=== PATIENT | male | born 1980 | race Hispanic/Latino ===

== ENCOUNTER 2019-09-02 11:25 | Inpatient (IN) | payer BC, OTHER, SELFPAY ==
[2019-09-02] MEDS ORDERED: NA CHLORIDE 0.9% 2,000 ML ONE (12:01)
--- NOTE | 2019-09-02 12:12 | EDPHYS ---
Physician Documentation [facility] Name: Gunnar Whitman Age: 38 yrs Sex: Male : 1980 Arrival Date: 09/02/2019 Time: 11:27 Bed 7 Private MD: ED Physician Shaun Pressley HPI: 09/01 12:05 This 38 yrs old Male presents to ER via Ambulatory with complaints of snw Breathing Difficulty, COVID+. 12:05 The patient has shortness of breath at rest. Onset: The symptoms/episode began/occurred snw 4 day(s) ago, and became worse today, and became persistent. Duration: The symptoms are continuous. The patient's shortness of breath is aggravated by exertion, is alleviated by nothing. Severity of symptoms: At their worst the symptoms were incapacitating in the emergency department the symptoms are unchanged. The patient has not experienced similar symptoms in the past. CoVid + one week ago. Historical: - Allergies: 11:41 No Known Allergies; em - PMHx: 11:41 Hypertension; em - PSHx: 11:41 Tonsillectomy; Knee surgery; em - Immunization history:: Adult Immunizations up to date. - Social history:: Smoking status: Patient denies any tobacco usage or history of. ROS: 12:06 Eyes: Negative for injury, pain, redness, and discharge, ENT: Negative for injury, snw pain, and discharge, Neck: Negative for injury, pain, and swelling, Cardiovascular: Negative for chest pain, palpitations, and edema. 12:06 Abdomen/GI: Negative for abdominal pain, nausea, vomiting, diarrhea, and constipation, Back: Negative for injury and pain, : Negative for injury, bleeding, discharge, and swelling, MS/Extremity: Negative for injury and deformity, Skin: Negative for injury, rash, and discoloration, Neuro: Negative for headache, weakness, numbness, tingling, and seizure. 12:06 Constitutional: Positive for body aches, fatigue, malaise. 12:06 Respiratory: Positive for cough, orthopnea, shortness of breath. Exam: 12:02 Head/Face: Normocephalic, atraumatic. Eyes: Pupils equal round and reactive to light, snw extra-ocular motions intact. Lids and lashes normal. Conjunctiva and sclera are non-icteric and not injected. Cornea within normal limits. Periorbital areas with no swelling, redness, or edema. ENT: Nares patent. No nasal discharge, no septal abnormalities noted. Tympanic membranes are normal and external auditory canals are clear. Oropharynx with no redness, swelling, or masses, exudates, or evidence of obstruction, uvula midline. Mucous membranes moist. Neck: Trachea midline, no thyromegaly or masses palpated, and no cervical lymphadenopathy. Supple, full range of motion without nuchal rigidity, or vertebral point tenderness. No Meningismus. Chest/axilla: Normal chest wall appearance and motion. Nontender with no deformity. No lesions are appreciated. 12:02 Abdomen/GI: Soft, non-tender, with normal bowel sounds. No distension or tympany. No guarding or rebound. No evidence of tenderness throughout. Back: No spinal tenderness. No costovertebral tenderness. Full range of motion. 12:02 Constitutional: The patient appears diaphoretic, in obvious distress, obviously ill. 12:02 Cardiovascular: Rate: tachycardic, Pulses: no pulse deficits are appreciated, Edema: is not appreciated. 12:02 Respiratory: severe repiratory distress is noted, Respirations: accessory muscle usage, intercostal retractions, shallow respirations, tachypnea, Breath sounds: wheezing: expiratory that is severe, bases. 12:02 Skin: Appearance: Moisture: diaphoretic. 12:02 Neuro: Exam negative for Vital Signs: 11:38 BP 127 / 84; Pulse 92; Resp 32; Temp 100.1(O); Pulse Ox 72% on R/A; Weight 167.83 kg; em Height 6 ft. 2 in. (187.96 cm); Pain 0/10; 12:00 BP 151 / 81; Pulse 84; Resp 26; Pulse Ox 94% on 60% BiPAP; sv 12:30 BP 151 / 82; Pulse 84; Resp 27; Pulse Ox 95% on 60% BiPAP; sv 12:45 BP 171 / 94; Pulse 91; Resp 27; Pulse Ox 95% on 60% BiPAP; sv 13:15 BP 144 / 64; Pulse 83; Resp 32; Pulse Ox 93% on 60% BiPAP; sv 13:45 BP 142 / 83; Pulse 87; Resp 32; Pulse Ox 93% on 60% BiPAP; sv 14:15 BP 141 / 76; Pulse 87; Resp 30; Pulse Ox 93% on 60% BiPAP; sv 15:00 BP 147 / 89; Pulse 90; Resp 30; Pulse Ox 92% on 60% BiPAP; sv 15:45 BP 122 / 93; Pulse 90; Resp 28; Pulse Ox 95% on 60% BiPAP; sv 16:45 BP 153 / 93; Pulse 84; Resp 26; Temp 99.9; Pulse Ox 96% on BiPAP; Pain 0/10; ls4 17:45 BP 131 / 89; Pulse 85; Resp 27; Pulse Ox 96% on BiPAP; ls4 18:45 BP 142 / 71; Pulse 85; Resp 26; Pulse Ox 96% on BiPAP; Pain 0/10; ls4 19:00 BP 127 / 67; Pulse 84; Resp 26; Pulse Ox 96% on BiPAP; ls4 11:38 Body Mass Index 47.50 (167.83 kg, 187.96 cm) em MDM: 12:07 Data reviewed: vital signs, nurses notes. Data interpreted: Pulse oximetry: on room air snw is 72 %. Interpretation: hypoxia. Plan: O2 by Mask applied. Counseling: I had a detailed discussion with the patient and/or guardian regarding: the historical points, exam findings, and any diagnostic results supporting the discharge/admit diagnosis, lab results, radiology results, the need for further work-up and treatment in the hospital. Physician consultation: Jonnathan Dior MD was called at 12:09, was contacted at 12:09, regarding admission, to the ICU, and will see patient in ED, immediately. 12:10 Patient medically screened. snw 09/01 11:44 Order name: Amylase, Serum 09/01 11:44 Order name: Basic Metabolic Panel 09/01 11:44 Order name: Blood Culture Adult (2) 09/01 11:44 Order name: CBC with Diff 09/01 11:44 Order name: Ckmb; Complete Time: 13:20 09/01 11:44 Order name: CPK; Complete Time: 13:20 09/01 11:44 Order name: Lactate; Complete Time: 12:51 09/01 11:44 Order name: LFT's; Complete Time: 13:20 09/01 11:44 Order name: Lipase; Complete Time: 13:20 09/01 11:44 Order name: Procalcitonin; Complete Time: 13:20 ss 09/01 11:44 Order name: Protime (+inr); Complete Time: 12:51 ss 09/01 11:44 Order name: Ptt, Activated; Complete Time: 12:51 ss 09/01 11:44 Order name: Troponin (emerg Dept Use Only); Complete Time: 13:20 ss 09/01 11:44 Order name: Urine Microscopic Only; Complete Time: 14:58 ss 09/01 11:44 Order name: Amylase; Complete Time: 13:20 EDTN 09/01 11:44 Order name: Basic Metabolic Panel; Complete Time: 13:20 EDMS 09/01 11:44 Order name: Blood Culture EDTN 09/01 11:44 Order name: CBC with Automated Diff; Complete Time: 12:51 EDTN 09/01 12:01 Order name: Ferritin; Complete Time: 13:21 snw 09/01 12:01 Order name: DD; Complete Time: 12:51 sn 09/01 12:01 Order name: BNP; Complete Time: 13:21 snw 09/01 12:01 Order name: ABG; Complete Time: 13:37 snw 09/01 14:49 Order name: Urine Dipstick--Ancillary (enter results); Complete Time: 14:58 09/01 14:55 Order name: CBC with Automated Diff [facility] 09/01 14:55 Order name: CBC with Automated Diff [facility] 09/01 14:55 Order name: CKMB Creatine Kinase MB [facility] 09/01 14:55 Order name: CKMB Creatine Kinase MB [facility] 09/01 14:55 Order name: CKMB Creatine Kinase MB [facility] 09/01 14:55 Order name: CKMB Creatine Kinase MB [facility] 09/01 14:55 Order name: Comprehensive Metabolic Panel [facility] 09/01 11:44 Order name: Chest Single View XRAY; Complete Time: 13:20 ss 09/01 11:44 Order name: Cardiac monitoring; Complete Time: 11:59 09/01 11:44 Order name: EKG - Nurse/Tech; Complete Time: 11:59 ss 09/01 11:44 Order name: IV Saline Lock - Large Bore; Complete Time: 11:58 ss 09/01 11:44 Order name: Labs collected and sent; Complete Time: 11:58 09/01 11:44 Order name: O2 Per Protocol; Complete Time: 11:50 09/01 11:44 Order name: O2 Sat Monitoring; Complete Time: 11:58 09/01 11:44 Order name: Urine Dipstick-Ancillary (obtain specimen); Complete Time: 14:46 09/01 12:01 Order name: BIPAP [facility] 09/01 14:34 Order name: EKG Electrocardiogram [facility] 09/01 14:55 Order name: CONS Physician Consult [facility] 09/01 14:55 Order name: Comprehensive Metabolic Panel [facility] 09/01 14:55 Order name: Troponin I [facility] 09/01 14:55 Order name: Troponin I [facility] 09/01 14:55 Order name: Troponin I [facility] 09/01 14:55 Order name: Troponin I [facility] 09/01 17:45 Order name: TS [facility] 09/01 19:31 Order name: Type and Screen [facility] 09/01 19:32 Order name: ABO/RH no charge EDTN Administered Medications: 12:00 Drug: NS 0.9% (30 ml/kg) 30 ml/kg Route: IV; Rate: bolus; Site: right antecubital; sv 13:30 Follow up: Response: No adverse reaction; IV Status: Completed infusion; IV Intake: sv 2000ml ; Alsysia JEAN said to give 2L out of the sepsis bolus. 13:30 Drug: Decadron - Dexamethasone 10 mg Route: IVP; Site: right antecubital; sv 14:00 Follow up: Response: No adverse reaction sv 13:33 Drug: Lovenox 100 mg Route: Sub-Q; Site: right lower abdomen; sv 14:00 Follow up: Response: No adverse reaction sv 13:33 Drug: Zithromax 500 mg Route: IVPB; Infused Over: 1 hrs; Site: right antecubital; sv 14:47 Follow up: Response: No adverse reaction; IV Status: Completed infusion; IV Intake: sv 250ml Disposition: 09/02 07:08 Co-signature as Attending Physician, Shaun Pressley MD. rn Disposition: 09/02/19 12:10 Hospitalization ordered by Jonnathan Dior for Inpatient Admission. Preliminary diagnosis are SARS-associated coronavirus as the cause of diseases classified elsewhere, Hypoxemia. - Bed requested for Intensive Care Unit. - Status is Inpatient Admission. mg2 - Condition is Serious. - Problem is an acute exacerbation. - Symptoms have worsened. Signatures: Dispatcher [employer] Patria Arboleda, RN HUGH Treasure Bowden RN RN Alyssia Min, STEFAN-C BUILDING PERFORMANCE SPECIALIST-Cs[employer] Benito Bustillos, RN RN em Shaun Pressley MD MD rn Smirch, Shelby, RN RN Todd Alberto RN RN mg2 Corrections: (The following items were deleted from the chart) 09/01 11:58 11:44 Accucheck ordered. ss sv 19:00 12:10 Hospitalization Ordered by Jonnathan Dior MD for Inpatient Admission. Preliminary dw diagnosis is SARS-associated coronavirus as the cause of diseases classified elsewhere; Hypoxemia. Bed requested for Intensive Care Unit. Status is Inpatient Admission. Condition is Serious. Problem is an acute exacerbation. Symptoms have worsened. snw 21:44 19:00 09/02/2019 12:10 Hospitalization Ordered by Jonnathan Dior MD for Inpatient mg2 Admission. Preliminary diagnosis is SARS-associated coronavirus as the cause of diseases classified elsewhere; Hypoxemia. Bed requested for Intensive Care Unit. Status is Inpatient Admission. Condition is Serious. Problem is an acute exacerbation. Symptoms have worsened. dw
--- NOTE | 2019-09-02 12:12 | ER ---
Nurse's Notes [facility] Name: Gunnar Whitman Age: 38 yrs Sex: Male : 1980 Arrival Date: 09/02/2019 Time: 11:27 Bed 7 Private MD: Diagnosis: SARS-associated coronavirus as the cause of diseases classified elsewhere;Hypoxemia Presentation: 09/01 11:38 Chief complaint: Patient states: was tested for covid 1 week ago, shortness of breath em and body aches and weakness for 3. Coronavirus screen: Prior COVID test positive results. Ebola Screen: Patient negative for fever greater than or equal to 101.5 degrees Fahrenheit, and additional compatible Ebola Virus Disease symptoms Patient denies exposure to infectious person. Patient denies travel to an Ebola-affected area in the 21 days before illness onset. No symptoms or risks identified at this time. Initial Sepsis Screen: Does the patient meet any 2 criteria? RR > 20 per min. HR > 90 bpm. Yes Does the patient have a suspected source of infection? Yes: Productive cough/pneumonia. Risk Assessment: Do you want to hurt yourself or someone else? Patient reports no desire to harm self or others. Onset of symptoms was August 30, 2019. 11:38 Method Of Arrival: Ambulatory em 11:38 Acuity: DALE 2 em Triage Assessment: 11:45 Respiratory: the patient has severe shortness of breath. sv Historical: - Allergies: 11:41 No Known Allergies; em - PMHx: 11:41 Hypertension; em - PSHx: 11:41 Tonsillectomy; Knee surgery; em - Immunization history:: Adult Immunizations up to date. - Social history:: Smoking status: Patient denies any tobacco usage or history of. Screenin:00 Abuse screen: Denies threats or abuse. Denies injuries from another. Nutritional sv screening: No deficits noted. Tuberculosis screening: No symptoms or risk factors identified. Fall Risk None identified. Assessment: 12:00 General: Appears in no apparent distress. uncomfortable, obese, well developed, sv Behavior is calm, cooperative, appropriate for age. Pain: Denies pain. Neuro: Level of Consciousness is awake, alert, obeys commands, Oriented to person, place, time, situation, Moves all extremities. Full function. Cardiovascular: Rhythm is sinus rhythm. Respiratory: Reports shortness of breath at rest on exertion labored breathing Airway is patent Respiratory effort is even, labored, shallow, Respiratory pattern is symmetrical, tachypnea. Derm: Skin is diaphoretic, Skin is normal. Musculoskeletal: Range of motion: intact in all extremities. 12:34 Reassessment: Alyssia Garcia RETURNED GOODS REPAIRER notified of elevated DDIMER [id number]. ss 12:40 Respiratory: Patient placed on BiPAP: Inspiratory Pressure: 12 Expiratory (EPAP) sv Pressure: 10 FiO2%: 60 Respiratory Rate: 12. 13:30 Reassessment: Patient appears in no apparent distress at this time. Patient and/or sv family updated on plan of care and expected duration. Pain level reassessed. Patient is alert, oriented x 3, equal unlabored respirations, skin warm/dry/pink. 13:30 Respiratory: Patient placed on BiPAP: Inspiratory Pressure: 12 Expiratory (EPAP) sv Pressure: 10 FiO2%: 60 Respiratory Rate: 12. 14:30 Reassessment: Patient appears in no apparent distress at this time. Patient and/or ls4 family updated on plan of care and expected duration. Pain level reassessed. Patient is alert, oriented x 3, equal unlabored respirations, skin warm/dry/pink. Patient states symptoms have improved. 14:30 Respiratory: Breath sounds are diminished. ls4 15:30 Reassessment: Patient appears in no apparent distress at this time. Patient and/or ls4 family updated on plan of care and expected duration. Pain level reassessed. Patient is alert, oriented x 3, equal unlabored respirations, skin warm/dry/pink. 16:30 Reassessment: Patient appears in no apparent distress at this time. Patient and/or ls4 family updated on plan of care and expected duration. Pain level reassessed. Patient is alert, oriented x 3, equal unlabored respirations, skin warm/dry/pink. 17:30 Reassessment: Patient appears in no apparent distress at this time. Patient and/or ls4 family updated on plan of care and expected duration. Pain level reassessed. Patient is alert, oriented x 3, equal unlabored respirations, skin warm/dry/pink. 18:31 Reassessment: Patient appears in no apparent distress at this time. Patient and/or ls4 family updated on plan of care and expected duration. Pain level reassessed. Patient is alert, oriented x 3, equal unlabored respirations, skin warm/dry/pink. 19:20 Reassessment: Pt refused Convalescent Plasma, CN notified. ls4 19:30 Reassessment: Patient appears in no apparent distress at this time. Patient and/or ls4 family updated on plan of care and expected duration. Pain level reassessed. Patient is alert, oriented x 3, equal unlabored respirations, skin warm/dry/pink. 20:30 Reassessment: Patient appears in no apparent distress at this time. Patient and/or ls4 family updated on plan of care and expected duration. Pain level reassessed. Patient is alert, oriented x 3, equal unlabored respirations, skin warm/dry/pink. 21:07 Reassessment: Patient appears in no apparent distress at this time. Patient and/or ls4 family updated on plan of care and expected duration. Pain level reassessed. Patient is alert, oriented x 3, equal unlabored respirations, skin warm/dry/pink. 22:07 Reassessment: Pt further educated on Convalescent Plasma. Pt agrees to received Plasma. ls4 Consent signed for [facility] convalescent Plasma and Procedure consent to receive Convalescent Plasma. Vital Signs: 11:38 BP 127 / 84; Pulse 92; Resp 32; Temp 100.1(O); Pulse Ox 72% on R/A; Weight 167.83 kg; em Height 6 ft. 2 in. (187.96 cm); Pain 0/10; 12:00 BP 151 / 81; Pulse 84; Resp 26; Pulse Ox 94% on 60% BiPAP; sv 12:30 BP 151 / 82; Pulse 84; Resp 27; Pulse Ox 95% on 60% BiPAP; sv 12:45 BP 171 / 94; Pulse 91; Resp 27; Pulse Ox 95% on 60% BiPAP; sv 13:15 BP 144 / 64; Pulse 83; Resp 32; Pulse Ox 93% on 60% BiPAP; sv 13:45 BP 142 / 83; Pulse 87; Resp 32; Pulse Ox 93% on 60% BiPAP; sv 14:15 BP 141 / 76; Pulse 87; Resp 30; Pulse Ox 93% on 60% BiPAP; sv 15:00 BP 147 / 89; Pulse 90; Resp 30; Pulse Ox 92% on 60% BiPAP; sv 15:45 BP 122 / 93; Pulse 90; Resp 28; Pulse Ox 95% on 60% BiPAP; sv 16:45 BP 153 / 93; Pulse 84; Resp 26; Temp 99.9; Pulse Ox 96% on BiPAP; Pain 0/10; ls4 17:45 BP 131 / 89; Pulse 85; Resp 27; Pulse Ox 96% on BiPAP; ls4 18:45 BP 142 / 71; Pulse 85; Resp 26; Pulse Ox 96% on BiPAP; Pain 0/10; ls4 19:00 BP 127 / 67; Pulse 84; Resp 26; Pulse Ox 96% on BiPAP; ls4 11:38 Body Mass Index 47.50 (167.83 kg, 187.96 cm) em ED Course: 11:27 Patient arrived in ED. ag5 11:41 Triage completed. em 11:41 Arm band placed on. em 11:49 Patria Phillips, RN is Primary Nurse. sv 11:49 Patient has correct armband on for positive identification. Placed in gown. Bed in low mh5 position. Call light in reach. Side rails up X 1. Pillow given. court recording monitor on. Pulse ox on. NIBP on. 11:49 Oxygen administration via nasal cannula \T\ 2L/min. mh5 11:50 Inserted saline lock: 20 gauge in right antecubital area, using aseptic technique. ss Blood collected. 11:55 Inserted saline lock: 20 gauge in left antecubital area, using aseptic technique. Blood ss collected. 11:58 [facility] snw 11:58 Shaun Pressley MD is Attending Physician. snw 11:58 Oxygen administration via non-rebreather mask \T\ 15 L per min. 95%. em 11:59 Amylase, Serum Sent. sv 11:59 Basic Metabolic Panel Sent. sv 11:59 Blood Culture Adult (2) Sent. sv 11:59 CBC with Diff Sent. sv 12:09 Jonnathan Dior MD is Hospitalizing Provider. snw 12:55 Chest Single View XRAY Sent. sv 12:56 BIPAP Sent. sv 12:58 Chest Single View XRAY In Process Unspecified. EDMS 14:30 Awaiting bed assignment. sv 15:23 Awaiting bed assignment. sv 16:13 Primary Nurse role handed off by Patria Phillips, HUGH sv 21:04 No provider procedures requiring assistance completed. ls4 21:44 Patient admitted, IV remains in place. intact. ls4 Administered Medications: 12:00 Drug: NS 0.9% (30 ml/kg) 30 ml/kg Route: IV; Rate: bolus; Site: right antecubital; sv 13:30 Follow up: Response: No adverse reaction; IV Status: Completed infusion; IV Intake: sv 2000ml ; Alyssia RETURNED GOODS REPAIRER said to give 2L out of the sepsis bolus. 13:30 Drug: Decadron - Dexamethasone 10 mg Route: IVP; Site: right antecubital; sv 14:00 Follow up: Response: No adverse reaction sv 13:33 Drug: Lovenox 100 mg Route: Sub-Q; Site: right lower abdomen; sv 14:00 Follow up: Response: No adverse reaction sv 13:33 Drug: Zithromax 500 mg Route: IVPB; Infused Over: 1 hrs; Site: right antecubital; sv 14:47 Follow up: Response: No adverse reaction; IV Status: Completed infusion; IV Intake: sv 250ml Intake: 13:30 IV: 2000ml; Total: 2000ml. sv 14:47 IV: 250ml; Total: 2250ml. sv Outcome: 12:10 Decision to Hospitalize by Provider. snw 21:44 Patient left the ED. mg2 21:44 Admitted to ICU accompanied by nurse, accompanied by tech, via stretcher, room 7, with ls4 oxygen, on monitor, with chart, Other with RT. Pt placed on NRB 15 liters O2. tolerated well 21:44 Admitted to 21:44 Admitted to Report called to Gema Vinson RN 21:44 critical 21:44 Instructed on the need for admit. Signatures: Dispatcher [employer] Patria Arboleda, RN RN sv Alyssia Min, MANAGER CUSTOMS-C MANAGER CUSTOMS-Csnw Benito Bustillos, RN Monique Chase RN RN Deena Mayberry [facility] Todd Alberto RN RN mg2 Taya Bautista RN RN ls4 Cabrera Parikh 5 Corrections: (The following items were deleted from the chart) 12:12 11:58 NS 0.9% (30 ml/kg) 30 ml/kg IV at bolus in right antecubital sv snw 12:38 11:38 BP 127 / 84; Pulse 92bpm; Resp 32bpm; Pulse Ox 82% RA; Temp 100.1F Oral; 167.83 em kg; Height 6 ft. 2 in.; BMI: 47.5; Pain 0/10; em 14:10 12:40 Respiratory: Patient placed on BiPAP: sv sv 19:16 16:45 BP 153 / 93; Pulse 84bpm; Resp 16bpm; Pulse Ox 96% RA; Temp 99.9F; Pain 0/10; ls4 ls4 19:28 16:45 BP 153 / 93; Pulse 84bpm; Resp 16bpm; Pulse Ox 96% BiPAP; Temp 99.9F; Pain 0/10; ls4 ls4 19:28 18:45 BP 142 / 71; Pulse 85bpm; Resp 16bpm; Pulse Ox 96% BiPAP; Pain 0/10; ls4 ls4 19:28 17:45 BP 131 / 89; Pulse 85bpm; Resp 16bpm; Pulse Ox 96% BiPAP; ls4 ls4 19:28 19:00 BP 127 / 67; Pulse 84bpm; Pulse Ox 96% BiPAP; ls4 ls4
[2019-09-02 12:14] LABS: Absolute Lymphocytes (CBC) 0.8 K/uL (0.7-4.9); Basophils % 0.3 % (0-1.3); Hematocrit 43.5 % (39.6-49.0); Lymphocytes % 12.5 % (15.3-44.8); RBC Red Blood Cell Count 5.29 M/uL (4.33-5.43)
[2019-09-02 12:19] LABS: Protime INR 1.22
[2019-09-02] MEDS ORDERED: dexAMETHasone 10 MG/ML VIAL ONE (12:23)
[2019-09-02] MEDS ORDERED: ENOXAPARIN 100 MG/ML SYR SQ ONE (12:23)
[2019-09-02 12:49] LABS: ALT/SGPT 78 U/L (12-78); AST/SGOT 97 U/L (15-37); Albumin 2.8 g/dL (3.4-5.0); Alkaline Phosphatase 48 U/L (45-117); Amylase 51 U/L (25-115); BUN Blood Urea Nitrogen 9 mg/dL (7-18); Bicarbonate 27 mmol/L (21-32); Bilirubin Direct 0.3 mg/dL (0-0.2); Bilirubin Total 0.6 mg/dL (0.2-1.0); CKMB Creatine Kinase MB 2.9 ng/mL (0.3-3.6); Glucose Level 113 mg/dL (74-106); Lipase 184 U/L (73-393); Potassium 3.1 mmol/L (3.5-5.1); Sodium Level 139 mmol/L (136-145); Troponin (Emerg Dept Use Only) 0.04 ng/mL (0.0-0.045)
[2019-09-02] MEDS ORDERED: AZITHROMYCIN IV 500 MG in NA CHLORIDE 0.9% 250 ML IVPB ONE (13:00)
--- NOTE | 2019-09-02 13:01 | P.HP ---
Certification for Inpatient Patient admitted to: Inpatient With expected LOS: >2 Midnights Practitioner: I am a practitioner with admitting privileges, knowledge of patient current condition, hospital course, and medical plan of care. Services: Services provided to patient in accordance with Admission requirements found in Title 42 Section 412.3 of the Code of Federal Regulations Patient History Date of Service: 09/02/19 Reason for admission: SOB History of Present Illness: 38 yrs old Male with past medical history of hypertension presents with complaints of shortness of breath which has been going on for the last 4 days and has been progressively worsening hence was brought to ER. He was tested positive 1 week ago. but did not had any symptoms and started having shortness of breath 4 days ago and became worse today, and became persistent. The symptoms are continuous. The patient's shortness of breath is aggravated by exertion, is alleviated by nothing. At the time of interview the patient is on BiPAP hence most of the history is obtained from the chart review and talking to the ER physician Allergies No Known Allergies Allergy (Unverified 02/01/17 13:22) Home medications list reviewed: Yes - Past Medical/Surgical History Past Medical History: Reviewed- Non-Contributory -: HTN -: Obesity Past Surgical History: Reviewed- Non-Contributory -: Knee - Family History Family History: Reviewed- Non-Contributory - Social History Smoking Status: Never smoker Review of Systems 10-point ROS is otherwise unremarkable Physical Examination - Vital Signs Temperature: 100.1 F Blood Pressure: 124/66 Pulse: 88 Respirations: 18 - Physical Exam General: Alert, Moderate distress, Obese HEENT: Atraumatic, Normocephalic Neck: Supple Respiratory: Diminished, Crackles/rales Cardiovascular: Normal pulses, Regular rate/rhythm Capillary refill: <2 Seconds Gastrointestinal: Soft and benign, W/out hepatosplenomegaly Musculoskeletal: No clubbing, No swelling Integumentary: No rashes, No breakdown Neurological: Normal strength at 5/5 x4 extr, Other (Alert , Awake ) Lymphatics: No axilla or inguinal lymphadenopathy - Studies Laboratory Data (last 24 hrs) 09/02/19 11:57: PT 14.3 H, INR 1.22, APTT 32.9 09/02/19 11:57: WBC 6.7, Hgb 14.5, Hct 43.5, Plt Count 197 Assessment and Plan - Problems (Diagnosis) (1) Sepsis with acute hypoxic respiratory failure Current Visit: Yes Status: Acute (2) Pneumonia due to COVID-19 virus Current Visit: Yes Status: Acute - Plan Acute hypoxic respiratory failure Pneumonia due to COVID 19 Hypertension Obesity Plan Monitor closely under telemetry Will get an ABG Pulmonology consult Will start on BiPAP Start on steroids and empiric antibiotics Lovenox full dose Start on Decadron Will also get a convalescent plasma for him Pulmonology recommending Remdesivir GI/DVT prophylaxis Prognosis guarded - Advance Directives Does patient have a Living Will: No Does patient have a Durable POA for Healthcare: No Time Spent Managing Pts Care (In Minutes): 48
[2019-09-02 13:03] LABS: Creatine Phosphokinase 2612 U/L (39-308)
--- NOTE | 2019-09-02 13:12 | RAD REPORT ---
EXAM DESCRIPTION: RAD - Chest Single View - 09/02/2019 12:57 pm CLINICAL HISTORY: covid +, shortness of breath, body aches COMPARISON: Portable February 2016 TECHNIQUE: AP portable chest image was obtained 09/02/2019 12:57 pm . FINDINGS: Lung volumes are low. Large body habitus further accentuates the chest findings. The patie nt has extensive airspace opacification throughout the right lung field and much of the left lung fie ld. Left lung field is a peripheral distribution. Trachea is midline. Heart and vasculature are dolly l. No measurable pleural effusion and no pneumothorax. No acute bony abnormality seen. No acute aorti c findings suspected. IMPRESSION: Extensive bilateral airspace opacification throughout the lung woods. Given the positive coronal virus test, chest findings are most likely an advanced COVID-19 pneumonia.
[2019-09-02 13:20] LABS: Ferritin 572.8 ng/mL (26-388)
[2019-09-02 13:35] LABS: Arterial Blood Carboxyhemoglob 1.1 % (0-1.5); Blood Gas Oxyhemoglobin 91.4 % (94-97)
[2019-09-02] MEDS ORDERED: ACETAMINOPHEN 500 MG TAB PO PRN (14:48)
[2019-09-02 14:55] LABS: Urine Bacteria NONE SEEN /HPF (NONE SEEN); Urine Culture Reflex Order NOT NEEDED; Urine RBC <5 /HPF (NONE SEEN)
[2019-09-02 14:56] LABS: Urine Blood NEGATIVE (NEG); Urine Glucose NEGATIVE (NEG); Urine Protein NEGATIVE (NEG); Urine pH 6.5 (5.0-7.0)
[2019-09-02] MEDS: CEFTRIAXONE/SWI 1gm 1 GM/10 ML SYR IVP SCH (15:00)
[2019-09-02] MEDS: SPIRONOLACTONE 25 MG TABLET PO SCH (16:00)
[2019-09-02] MEDS ORDERED: FUROSEMIDE 20 MG/ 2ML VIAL IV ONE (16:00)
[2019-09-02] MEDS ORDERED: Remdesivir 200 MG in NA CHLORIDE 0.9% 250 ML IV ONE (17:00)
[2019-09-02] MEDS ORDERED: FUROSEMIDE 20 MG TABLET ONE (17:44)
[2019-09-02] MEDS ORDERED: SPIRONOLACTONE 25 MG TABLET ONE (18:37)
[2019-09-02] MEDS ORDERED: CEFTRIAXONE/SWI 1gm 1 GM/10 ML SYR ONE (20:09)
[2019-09-02 20:54] LABS: CKMB Creatine Kinase MB 4.1 ng/mL (0.3-3.6); Troponin I 0.02 ng/mL (0.0-0.045)
[2019-09-02 22:29] VITALS: BMI 47.5
[2019-09-02] MEDS: FAMOTIDINE 20 MG/2 ML VIAL IV SCH (22:55)
[2019-09-02] MEDS: ENOXAPARIN 30 MG/0.3 ML SQ SCH (22:55)
[2019-09-03 05:52] LABS: Absolute Lymphocytes (CBC) 0.8 K/uL (0.7-4.9); Basophils % 0.1 % (0-1.3); Hematocrit 41.8 % (39.6-49.0); MPV 10.2 fL (7.6-11.3)
[2019-09-03 05:55] LABS: ALT/SGPT 70 U/L (12-78); AST/SGOT 82 U/L (15-37); Albumin 2.5 g/dL (3.4-5.0); Alkaline Phosphatase 45 U/L (45-117); BUN Blood Urea Nitrogen 12 mg/dL (7-18); Bicarbonate 28 mmol/L (21-32); Bilirubin Total 0.5 mg/dL (0.2-1.0); Glucose Level 147 mg/dL (74-106); Potassium 3.5 mmol/L (3.5-5.1); Protein, Total 6.8 g/dL (6.4-8.2); Sodium Level 146 mmol/L (136-145)
[2019-09-03 05:57] LABS: CKMB Creatine Kinase MB 4.9 ng/mL (0.3-3.6); Troponin I 0.02 ng/mL (0.0-0.045)
[2019-09-03 06:28] LABS: Magnesium 2.3 mg/dL (1.8-2.4); Phosphorus 2.6 mg/dL (2.5-4.9)
[2019-09-03] MEDS: CEFTRIAXONE/SWI 1gm 1 GM/10 ML SYR IVP SCH (08:58)
[2019-09-03] MEDS: METOPROLOL TAR 50 MG TAB PO SCH (08:58)
[2019-09-03] MEDS: ENOXAPARIN 30 MG/0.3 ML SQ SCH (08:58)
[2019-09-03] MEDS: ZINC SULFATE 220 MG CAP PO SCH (08:59)
[2019-09-03] MEDS: dexAMETHasone 4 MG/ML VIAL IV SCH (08:59)
[2019-09-03] MEDS: FAMOTIDINE 20 MG/2 ML VIAL IV SCH ×2 (08:59→20:21)
[2019-09-03] MEDS: THIAMINE HCL 100 MG TABLET PO SCH (08:59)
[2019-09-03] MEDS: SPIRONOLACTONE 25 MG TABLET PO SCH (08:59)
[2019-09-03] MEDS ORDERED: AZITHROMYCIN IV 500 MG in NA CHLORIDE 0.9% 250 ML IVPB SCH (09:00)
[2019-09-03] MEDS ORDERED: POTASSIUM CL SA 10 MEQ TAB PO ONE (09:00)
[2019-09-03] MEDS ORDERED: ENOXAPARIN 40 MG/0.4 ML SQ SCH (09:00)
--- NOTE | 2019-09-03 10:17 | EKG ---
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
[2019-09-03] MEDS: Remdesivir 100 MG in NA CHLORIDE 0.9% 250 ML IV SCH (10:21)
--- NOTE | 2019-09-03 10:49 | P.PN ---
Subjective Date of Service: 09/03/19 Chief Complaint: SOB Subjective: No new changes Review of Systems 10-point ROS is otherwise unremarkable Physical Examination - Vital Signs Temperature: 97.2 F Blood Pressure: 166/97 Pulse: 98 Respirations: 38 Pulse Ox (%): 90 - Physical Exam General: Alert, Mild distress, Obese HEENT: Atraumatic, Normocephalic Neck: Supple, 2+ carotid pulse no bruit Respiratory: Diminished, Crackles/rales Cardiovascular: Regular rate/rhythm, Normal S1 S2 Capillary refill: <2 Seconds Gastrointestinal: Soft and benign, W/out hepatosplenomegaly Musculoskeletal: No clubbing, No swelling Integumentary: No rashes Neurological: Normal speech, Normal strength at 5/5 x4 extr Lymphatics: No axilla or inguinal lymphadenopathy Urinary: Other (No bladder distention) - Studies Laboratory Data (last 24 hrs) 09/02/19 11:57: PT 14.3 H, INR 1.22, APTT 32.9 09/02/19 11:57: WBC 6.7, Hgb 14.5, Hct 43.5, Plt Count 197 09/02/19 11:57: Sodium 139, Potassium 3.1 L, BUN 9, Creatinine 0.91, Glucose 113 H, Total Bilirubin 0.6, AST 97 H, ALT 78, Alkaline Phosphatase 48, Amylase 51, Lipase 184 Assessment & Plan - Problems (Diagnosis) (1) Sepsis with acute hypoxic respiratory failure Current Visit: Yes Status: Acute (2) Pneumonia due to COVID-19 virus Current Visit: Yes Status: Acute Physician Review Additional Text: Acute hypoxic respiratory failure Pneumonia due to COVID 19 Hypertension Obesity Hypernatremia Plan Admitted to ICU Patient is on BiPAP Chance of decompensation is very high Monitor closely under telemetry Appreciate Pulmonology consult on steroids and empiric antibiotics Anticoagulation convalescent plasma Pulmonology recommended Remdesivir Monitor renal parameters GI/DVT prophylaxis Prognosis guarded Time Spent Managing Pts Care (In Minutes): 45
[2019-09-03] MEDS: BUDESONIDE 0.5 MG/2 ML NEB NEB SCH ×2 (11:58→20:15)
--- NOTE | 2019-09-03 12:08 | P.CNS ---
Date of Consult: 09/03/19 Reason for Consult: respiratory failure due to garcia virus Chief Complaint: respiratory failure History of Present Illness: patient is 38 years of age with a history of hypertension admitted with progressive dyspnea for the past 4 weeks as tested positive about a week ago presented with diff diffuse bilateral pulmonary infiltrates significanthypoxemia and was started on BiPAP Allergies No Known Allergies Allergy (Verified 09/02/19 22:08) Home Medications: Hydralazine HCl [Apresoline] 100 mg PO BID 09/02/19 Losartan Potassium [Cozaar] 100 mg PO DAILY 09/02/19 Metoprolol Tartrate [Lopressor*] 100 mg PO DAILY 09/02/19 - Past Medical/Surgical History Diabetic: No -: HTN -: Obesity -: Knee -: tonsillectomy - Family History Father Medical History: Hypertension - Social History Alcohol use: No CD- Drugs: No Caffeine use: Yes Place of Residence: Home Review of Systems Respiratory: Cough, Shortness of Breath Physical Examination Temp Pulse Resp BP Pulse Ox 97.2 F 81 38 H 151/91 H 90 L 09/03/19 10:49 09/03/19 11:00 09/03/19 11:00 09/03/19 11:00 09/03/19 11:00 General: Other Laboratory Data (last 24 hrs) 09/02/19 11:57: PT 14.3 H, INR 1.22, APTT 32.9 09/02/19 11:57: WBC 6.7, Hgb 14.5, Hct 43.5, Plt Count 197 09/02/19 11:57: Sodium 139, Potassium 3.1 L, BUN 9, Creatinine 0.91, Glucose 113 H, Total Bilirubin 0.6, AST 97 H, ALT 78, Alkaline Phosphatase 48, Amylase 51, Lipase 184 - Problems (1) Respiratory failure Current Visit: Yes Status: Acute Plan: patient is 38 years of age admitted with respiratory failure worse impressive bilateral infiltrates due to garcia virus continue with present treatment change to p.o. Zithromax he said rest as me and an convalescent plasma continue with steroids currently requiring 80% oxygen labs reviewed change anticoagulation to Eliquis continue with negative fluid balance Qualifiers: Chronicity: acute
[2019-09-03 13:31] LABS: CKMB Creatine Kinase MB 4.3 ng/mL (0.3-3.6); Troponin I 0.02 ng/mL (0.0-0.045)
[2019-09-03] MEDS: HYDRALAZINE HCL 20 MG/ML VIAL IV PRN ×2 (14:01→20:21)
[2019-09-03] MEDS: GUAIFENESIN/CODEINE 5ML UCUP PO PRN (14:25)
[2019-09-03] MEDS: BENZONATATE 100 MG CAP PO PRN (17:58)
[2019-09-03] MEDS: APIXABAN 5 MG TABLET PO SCH (20:20)
[2019-09-03] MEDS ORDERED: APIXABAN 2.5 MG TABLET PO SCH (21:00)
[2019-09-03] MEDS ORDERED: NA CHLORIDE 0.9% 250 ML ONE (22:41)
[2019-09-04 04:25] LABS: Protime INR 1.45
[2019-09-04 04:35] LABS: BUN Blood Urea Nitrogen 19 mg/dL (7-18); Bicarbonate 29 mmol/L (21-32); Glucose Level 137 mg/dL (74-106); Magnesium 2.5 mg/dL (1.8-2.4); Phosphorus 2.2 mg/dL (2.5-4.9); Potassium 3.5 mmol/L (3.5-5.1); Sodium Level 149 mmol/L (136-145)
[2019-09-04] MEDS ORDERED: POTASSIUM PHOS IN 0.9 % NACL 15 MMOL/250 ML BAG IV ONE (05:00)
[2019-09-04] MEDS: HYDRALAZINE HCL 20 MG/ML VIAL IV PRN ×2 (05:23→16:37)
[2019-09-04 08:17] LABS: Albumin 2.5 g/dL (3.4-5.0); Bilirubin Direct 0.2 mg/dL (0-0.2); Bilirubin Total 0.5 mg/dL (0.2-1.0); Protein, Total 6.7 g/dL (6.4-8.2)
--- NOTE | 2019-09-04 08:27 | RAD REPORT ---
EXAM DESCRIPTION: RAD - Chest Single View - 09/04/2019 5:46 am CLINICAL HISTORY: pneumonia Chest pain. COMPARISON: Chest Single View dated 09/02/2019; Abdomen 1 View ([facility]) dated 03/10/2017; Chest Single Vi ew dated 02/15/2016 FINDINGS: Portable technique limits examination quality. Extensive bilateral pulmonary opacities are again noted, compatible with pneumonia. Little overall ch gurdeep is seen in the degree of pulmonary opacities since 09/02/2019. The heart is mildly prominent in size. No displaced fractures.
[2019-09-04] MEDS: METOPROLOL TAR 50 MG TAB PO SCH (08:29)
[2019-09-04] MEDS: CEFTRIAXONE/SWI 1gm 1 GM/10 ML SYR IVP SCH (08:29)
[2019-09-04] MEDS: FAMOTIDINE 20 MG/2 ML VIAL IV SCH ×2 (08:30→21:08)
[2019-09-04] MEDS: ZINC SULFATE 220 MG CAP PO SCH (08:30)
[2019-09-04] MEDS: APIXABAN 5 MG TABLET PO SCH ×2 (08:30→21:08)
[2019-09-04] MEDS: dexAMETHasone 4 MG/ML VIAL IV SCH (08:30)
[2019-09-04] MEDS: THIAMINE HCL 100 MG TABLET PO SCH (08:30)
[2019-09-04] MEDS: GUAIFENESIN/CODEINE 5ML UCUP PO PRN (08:31)
[2019-09-04] MEDS: Remdesivir 100 MG in NA CHLORIDE 0.9% 250 ML IV SCH (09:55)
[2019-09-04] MEDS: BUDESONIDE 0.5 MG/2 ML NEB NEB SCH ×2 (10:50→20:30)
--- NOTE | 2019-09-04 11:00 | P.PN ---
Subjective Date of Service: 09/04/19 Chief Complaint: SOB Subjective: No new changes, Other (Slightly Worsened from yesterday) Review of Systems 10-point ROS is otherwise unremarkable Physical Examination - Vital Signs Temperature: 99.4 F Blood Pressure: 164/93 Pulse: 83 Respirations: 31 Pulse Ox (%): 90 - Physical Exam General: Alert, Moderate distress, Obese HEENT: Atraumatic, Normocephalic Neck: Supple, 2+ carotid pulse no bruit Respiratory: Diminished, Crackles/rales Cardiovascular: Regular rate/rhythm, Normal S1 S2 Capillary refill: <2 Seconds Gastrointestinal: Soft and benign, W/out hepatosplenomegaly Musculoskeletal: No clubbing, No swelling Integumentary: No rashes Neurological: Normal speech, Normal strength at 5/5 x4 extr Lymphatics: No axilla or inguinal lymphadenopathy Assessment & Plan - Problems (Diagnosis) (1) Sepsis with acute hypoxic respiratory failure Current Visit: Yes Status: Acute (2) Pneumonia due to COVID-19 virus Current Visit: Yes Status: Acute Physician Review Additional Text: Acute hypoxic respiratory failure Pneumonia due to COVID 19 Hypertension Obesity Hypernatremia Plan Admitted to ICU Patient is still on BiPAP, increase in respiratory rate noted Chance of decompensation is very high Monitor closely under telemetry Appreciate Pulmonology consult on steroids and empiric antibiotics ,Remdesivir Anticoagulation convalescent plasma Monitor renal parameters GI/DVT prophylaxis Prognosis guarded Time Spent Managing Pts Care (In Minutes): 45
[2019-09-04] MEDS: LOSARTAN POTASSIUM 50 MG TABLET PO SCH (11:36)
--- NOTE | 2019-09-04 11:49 | P.PN ---
Subjective Date of Service: 09/26/19 Chief Complaint: Respiratory failure due to garcia virus Patient's condition is stable his oxygen requirements have decreased a little bit to 70% still very short of breath Review of Systems General: Weakness Respiratory: Shortness of Breath Physical Examination - Vital Signs Temperature: 99.4 F Blood Pressure: 164/93 Pulse: 83 Respirations: 31 Pulse Ox (%): 90 - Physical Exam General: Alert, Moderate distress Respiratory: Crackles/rales (Crackles bilaterally) Cardiovascular: No edema, Regular rate/rhythm Assessment & Plan - Problems (Diagnosis) (1) Respiratory failure Status: Acute Plan: Patient admitted with respiratory failure due to garcia virus he has bilateral airspace disease continue with present treatment as still alert oxygen requirements have declined a little bit today EPAP was increase in so was is respiratory rate today encourage fluid intake Qualifiers: Chronicity: acute
[2019-09-04] MEDS: ACETYLCYST 20% 800 MG/4 ML VIAL PO SCH ×2 (13:01→21:09)
[2019-09-04] MEDS: ONDANSETRON 4 MG/2 ML VIAL IV PRN (17:49)
--- NOTE | 2019-09-04 20:54 | RAD REPORT ---
EXAM DESCRIPTION: US - Abdomen Exam Complete - 09/04/2019 8:08 pm CLINICAL HISTORY: Abdominal pain COMPARISON: none FINDINGS: The liver has a normal echotexture. The gallbladder is contracted and poorly visualized. No gross gallstones seen. Gallbladder wall dolly l thickness. Biliary tree normal caliber. Nonvisualization of pancreas secondary to overlying bowel gas. Poor evaluation of IVC and aorta secon cindy to overlying bowel gas The right kidney measures 12 centimeters with a normal echotexture. The left kidney measures 11 centimeters with a normal echotexture. The evaluation is suboptimal but t here appears to be mild hydronephrosis. Small calculi The spleen measures 10 centimeters. IMPRESSION: Probable mild left hydronephrosis Limited evaluation of the abdomen secondary to body habitus. If clinically indicated further evaluation with CT scan may be helpful
[2019-09-04] MEDS: BENZONATATE 100 MG CAP PO PRN (21:08)
[2019-09-05 05:24] LABS: ALT/SGPT 52 U/L (12-78); AST/SGOT 37 U/L (15-37); Albumin 2.3 g/dL (3.4-5.0); Alkaline Phosphatase 43 U/L (45-117); BUN Blood Urea Nitrogen 25 mg/dL (7-18); Bicarbonate 30 mmol/L (21-32); Bilirubin Direct 0.2 mg/dL (0-0.2); Bilirubin Total 0.4 mg/dL (0.2-1.0); Glucose Level 124 mg/dL (74-106); Magnesium 2.7 mg/dL (1.8-2.4); Phosphorus 3.7 mg/dL (2.5-4.9); Potassium 3.7 mmol/L (3.5-5.1); Protein, Total 6.5 g/dL (6.4-8.2); Sodium Level 150 mmol/L (136-145)
[2019-09-05] MEDS ORDERED: KCL 20 MEQ/100 mL IVPB 20 MEQ/100 ML BAG IV SCH (07:00)
[2019-09-05] MEDS: Remdesivir 100 MG in NA CHLORIDE 0.9% 250 ML IV SCH (08:43)
[2019-09-05] MEDS: APIXABAN 5 MG TABLET PO SCH ×2 (08:43→20:04)
[2019-09-05] MEDS: LOSARTAN POTASSIUM 50 MG TABLET PO SCH (08:43)
[2019-09-05] MEDS: ZINC SULFATE 220 MG CAP PO SCH (08:43)
[2019-09-05] MEDS: THIAMINE HCL 100 MG TABLET PO SCH (08:43)
[2019-09-05] MEDS: METOPROLOL TAR 50 MG TAB PO SCH (08:43)
[2019-09-05] MEDS: CEFTRIAXONE/SWI 1gm 1 GM/10 ML SYR IVP SCH (08:43)
[2019-09-05] MEDS: ACETYLCYST 20% 800 MG/4 ML VIAL PO SCH ×2 (08:44→20:04)
[2019-09-05] MEDS: dexAMETHasone 4 MG/ML VIAL IV SCH (08:44)
[2019-09-05] MEDS: FAMOTIDINE 20 MG/2 ML VIAL IV SCH ×2 (08:44→20:04)
--- NOTE | 2019-09-05 08:48 | P.PN ---
Subjective Date of Service: 09/26/19 Chief Complaint: Respiratory failure due to garcia virus Patient's condition has been stable he is requiring less oxygen still tachypneic hypernatremic Review of Systems Respiratory: Shortness of Breath Physical Examination - Vital Signs Temperature: 98.9 F Blood Pressure: 134/69 Pulse: 64 Respirations: 28 Pulse Ox (%): 94 - Physical Exam General: Other (Deferred patient is in isolation) Assessment & Plan - Problems (Diagnosis) (1) Respiratory failure Status: Acute Plan: Patient admitted with respiratory failure plan to increases EPAP to the max tolerated and use the FiO2 to titrate sat to 90% patient is hypernatremic encourage fluid intake diuretics discontinued patient is anti coagulated vital signs stable Qualifiers: Chronicity: acute
[2019-09-05] MEDS: BUDESONIDE 0.5 MG/2 ML NEB NEB SCH ×2 (08:55→20:45)
--- NOTE | 2019-09-05 09:05 | RAD REPORT ---
EXAM DESCRIPTION: RAD - Chest Single View - 09/05/2019 6:32 am CLINICAL HISTORY: pneumonia Chest pain. COMPARISON: Chest Single View dated 09/04/2019; Chest Single View dated 09/02/2019; Abdomen 1 View ([facility]) dated 03/10/2017; Chest Single View dated 02/15/2016 FINDINGS: Portable technique limits examination quality. Extensive bilateral pulmonary opacities are again noted compatible with pneumonia, mildly improved si nce comparative study. The heart is normal in size. No displaced fractures. IMPRESSION: Mild improvement lung aeration is seen since comparative study.
--- NOTE | 2019-09-05 12:01 | P.PN ---
Subjective Date of Service: 09/05/19 Chief Complaint: Respiratory failure due to garcia virus Subjective: No new changes, Other (Still on BiPAP) Review of Systems 10-point ROS is otherwise unremarkable Physical Examination - Vital Signs Temperature: 98.9 F Blood Pressure: 138/82 Pulse: 67 Respirations: 30 Pulse Ox (%): 92 - Physical Exam General: Alert, Moderate distress, Obese HEENT: Atraumatic, Normocephalic Neck: Supple Respiratory: Diminished, Crackles/rales Cardiovascular: Normal pulses, Regular rate/rhythm Capillary refill: <2 Seconds Gastrointestinal: Soft and benign, W/out hepatosplenomegaly Musculoskeletal: No clubbing, No swelling Integumentary: No rashes Neurological: Normal speech, Other (Alert ,Awake ) Lymphatics: No axilla or inguinal lymphadenopathy Assessment & Plan - Problems (Diagnosis) (1) Sepsis with acute hypoxic respiratory failure Current Visit: Yes Status: Acute (2) Pneumonia due to COVID-19 virus Current Visit: Yes Status: Acute Physician Review Additional Text: Acute hypoxic respiratory failure Pneumonia due to COVID 19 Hypertension Obesity Hypernatremia Plan Admitted to ICU still on BiPAP, trying to titrate oxygen requirement Chance of decompensation is very high Monitor closely under telemetry Appreciate Pulmonology consult on steroids and empiric antibiotics ,Remdesivir Anticoagulation convalescent plasma Monitor renal parameters GI/DVT prophylaxis Prognosis guarded Time Spent Managing Pts Care (In Minutes): 45
[2019-09-06 05:25] LABS: ALT/SGPT 56 U/L (12-78); AST/SGOT 36 U/L (15-37); Albumin 2.4 g/dL (3.4-5.0); Alkaline Phosphatase 42 U/L (45-117); BUN Blood Urea Nitrogen 29 mg/dL (7-18); Bicarbonate 32 mmol/L (21-32); Bilirubin Direct 0.2 mg/dL (0-0.2); Bilirubin Total 0.5 mg/dL (0.2-1.0); Glucose Level 105 mg/dL (74-106); Magnesium 2.6 mg/dL (1.8-2.4); Phosphorus 3.4 mg/dL (2.5-4.9); Potassium 3.8 mmol/L (3.5-5.1); Protein, Total 6.7 g/dL (6.4-8.2); Sodium Level 152 mmol/L (136-145)
[2019-09-06] MEDS ORDERED: POTASSIUM CL SA 10 MEQ TAB PO ONE (06:00)
[2019-09-06] MEDS: LOSARTAN POTASSIUM 50 MG TABLET PO SCH (07:40)
[2019-09-06] MEDS: FAMOTIDINE 20 MG/2 ML VIAL IV SCH ×2 (07:40→20:14)
[2019-09-06] MEDS: CEFTRIAXONE/SWI 1gm 1 GM/10 ML SYR IVP SCH (07:40)
[2019-09-06] MEDS: dexAMETHasone 4 MG/ML VIAL IV SCH (07:40)
[2019-09-06] MEDS: METOPROLOL TAR 50 MG TAB PO SCH (07:41)
[2019-09-06] MEDS: APIXABAN 5 MG TABLET PO SCH ×2 (07:41→20:14)
[2019-09-06] MEDS: ZINC SULFATE 220 MG CAP PO SCH (07:41)
[2019-09-06] MEDS: GUAIFENESIN/CODEINE 5ML UCUP PO PRN ×2 (07:52→18:26)
[2019-09-06] MEDS: BENZONATATE 100 MG CAP PO PRN ×2 (07:52→20:13)
[2019-09-06] MEDS: Remdesivir 100 MG in NA CHLORIDE 0.9% 250 ML IV SCH (08:23)
[2019-09-06] MEDS: THIAMINE HCL 100 MG TABLET PO SCH (08:24)
[2019-09-06] MEDS: ACETYLCYST 20% 800 MG/4 ML VIAL PO SCH ×2 (09:00→20:14)
[2019-09-06] MEDS: BUDESONIDE 0.5 MG/2 ML NEB NEB SCH ×2 (09:15→20:55)
--- NOTE | 2019-09-06 09:15 | RAD REPORT ---
EXAM DESCRIPTION: RAD - Chest Single View - 09/06/2019 9:00 am CLINICAL HISTORY: COVID Pneumonia, hypoxia COMPARISON: September 04, September 03 TECHNIQUE: AP portable chest image was obtained 09/06/2019 9:00 am . FINDINGS: Bilateral airspace opacification shows continued improvement. Significant lower lung base opacification remains. Heart size and vasculature are stable. No measurable pleural effusion and no p neumothorax. No acute bony abnormality seen. No acute aortic findings suspected. IMPRESSION: Continued improvement in the bilateral pneumonia pattern. Significant bilateral lung base opacification remains, particularly on the right.
--- NOTE | 2019-09-06 09:52 | P.PN ---
Subjective Date of Service: 09/06/19 Chief Complaint: Respiratory failure due to garcia virus Subjective: No new changes Review of Systems 10-point ROS is otherwise unremarkable Physical Examination - Vital Signs Temperature: 97.9 F Blood Pressure: 157/99 Pulse: 78 Respirations: 29 Pulse Ox (%): 91 - Physical Exam General: Alert, Mild distress, Obese HEENT: Atraumatic, Normocephalic Neck: Supple, 2+ carotid pulse no bruit Respiratory: Diminished, Crackles/rales Cardiovascular: Regular rate/rhythm, Normal S1 S2 Capillary refill: <2 Seconds Gastrointestinal: Soft and benign, W/out hepatosplenomegaly Musculoskeletal: No clubbing, No swelling Integumentary: No rashes Neurological: Other (Alert awake) Urinary: Other (No bladder distention) Assessment & Plan - Problems (Diagnosis) (1) Sepsis with acute hypoxic respiratory failure Current Visit: Yes Status: Acute (2) Pneumonia due to COVID-19 virus Current Visit: Yes Status: Acute Physician Review Additional Text: Acute hypoxic respiratory failure Pneumonia due to COVID 19 Hypertension Obesity Hypernatremia Plan still on BiPAP, trying to titrate oxygen requirement Monitor closely under telemetry Appreciate Pulmonology consult on steroids and empiric antibiotics ,Remdesivir Anticoagulation convalescent plasma Monitor renal parameters Hypernatremia slightly worsened Encouraged p.o. fluids Monitor CBC CMP in a.m. GI/DVT prophylaxis Prognosis guarded Time Spent Managing Pts Care (In Minutes): 45
[2019-09-06 10:02] LABS: Arterial Blood Carboxyhemoglob 0.7 % (0-1.5); Blood Gas Oxyhemoglobin 91.4 % (94-97); Blood O2 Saturation 92.7 % (92-98.5)
--- NOTE | 2019-09-06 11:12 | P.PN ---
Subjective Date of Service: 09/26/19 Chief Complaint: Respiratory failure due to garcia virus Patient's oxygen requirements are decreasing still tolerating BiPAP an issue eat and drink Review of Systems General: Weakness Respiratory: Cough, Shortness of Breath Physical Examination - Vital Signs Temperature: 97.9 F Blood Pressure: 157/99 Pulse: 78 Respirations: 29 Pulse Ox (%): 91 - Physical Exam General: Alert, Cooperative Assessment & Plan - Problems (Diagnosis) (1) Respiratory failure Status: Acute Plan: Respiratory failure from coronal virus infection is chest x-rays improving oxygen requirements decreasing continue with present therapy serum ferritin CRP levels ordered patient is hypernatremic and courage fluid intake if his hype rnatremia is worse tomorrow will consider giving am starting him on some IV fluids on 60% FiO2 his oxygenation is satisfactory is mildly hypercarbic cultures negative Qualifiers: Chronicity: acute
[2019-09-06 12:34] LABS: C-Reactive Protein 20.9 mg/L (<3.00); Ferritin 486.9 ng/mL (26-388)
[2019-09-06] MEDS: MULTIVITAMIN TAB PO SCH (13:27)
[2019-09-06] MEDS: HYDRALAZINE HCL 20 MG/ML VIAL IV PRN ×2 (15:05→20:14)
[2019-09-06] MEDS: ALPRAZOLAM 0.25 MG TABLET PO PRN ×2 (16:48→20:14)
[2019-09-06] MEDS ORDERED: LABETALOL 20 MG/4ML SYRINGE IV ONE (19:00)
[2019-09-07] MEDS: ALPRAZOLAM 0.25 MG TABLET PO PRN ×2 (00:41→09:56)
[2019-09-07] MEDS: HYDRALAZINE HCL 20 MG/ML VIAL IV PRN ×2 (01:58→09:18)
[2019-09-07 05:19] LABS: Absolute Lymphocytes (CBC) 0.9 K/uL (0.7-4.9); Basophils % 0.2 % (0-1.3); Hematocrit 43.7 % (39.6-49.0); MPV 9.5 fL (7.6-11.3); RBC Red Blood Cell Count 5.27 M/uL (4.33-5.43)
[2019-09-07 05:27] LABS: BUN Blood Urea Nitrogen 21 mg/dL (7-18); Bicarbonate 29 mmol/L (21-32); Glucose Level 107 mg/dL (74-106); Potassium 3.5 mmol/L (3.5-5.1); Sodium Level 149 mmol/L (136-145)
[2019-09-07] MEDS: METOPROLOL TAR 50 MG TAB PO SCH (05:37)
[2019-09-07] MEDS: BUDESONIDE 0.5 MG/2 ML NEB NEB SCH ×2 (07:43→19:55)
[2019-09-07] MEDS ORDERED: AMLODIPINE 5 MG TAB PO SCH (09:00)
[2019-09-07] MEDS: ACETYLCYST 20% 800 MG/4 ML VIAL PO SCH ×2 (09:00→21:44)
[2019-09-07] MEDS ORDERED: POTASSIUM CL SA 10 MEQ TAB PO ONE (09:00)
[2019-09-07] MEDS: CEFTRIAXONE/SWI 1gm 1 GM/10 ML SYR IVP SCH (09:18)
[2019-09-07] MEDS: dexAMETHasone 4 MG/ML VIAL IV SCH (09:19)
[2019-09-07] MEDS: MULTIVITAMIN TAB PO SCH (09:20)
[2019-09-07] MEDS: APIXABAN 5 MG TABLET PO SCH ×2 (09:23→21:00)
[2019-09-07] MEDS: THIAMINE HCL 100 MG TABLET PO SCH (09:23)
[2019-09-07] MEDS: FAMOTIDINE 20 MG/2 ML VIAL IV SCH ×2 (09:24→21:40)
[2019-09-07] MEDS: BENZONATATE 100 MG CAP PO PRN (09:25)
[2019-09-07] MEDS: LOSARTAN POTASSIUM 50 MG TABLET PO SCH (09:25)
[2019-09-07] MEDS: ZINC SULFATE 220 MG CAP PO SCH (09:27)
--- NOTE | 2019-09-07 10:26 | P.PN ---
Subjective Date of Service: 09/26/19 (Telephone VIsit) Chief Complaint: Respiratory failure due to garcia virus No change stillSOB. Requiring BIPAP and high levels of O2 . BP elevated Physical Examination - Vital Signs Temperature: 99.1 F Blood Pressure: 169/104 Pulse: 87 Respirations: 24 Pulse Ox (%): 92 Assessment & Plan - Problems (Diagnosis) (1) Respiratory failure Status: Acute Plan: No change. Still very SOB. BP elevated. Add Spironolactone and amlodipine low Ferrtin and CRP levels Qualifiers: Chronicity: acute
--- NOTE | 2019-09-07 10:32 | P.PN ---
Subjective Date of Service: 09/07/19 Chief Complaint: Respiratory failure due to garcia virus Subjective: No new changes, Other (Still on Bipap) Review of Systems 10-point ROS is otherwise unremarkable Physical Examination - Vital Signs Temperature: 99.1 F Blood Pressure: 169/104 Pulse: 87 Respirations: 24 Pulse Ox (%): 92 - Physical Exam General: Alert, Moderate distress HEENT: Atraumatic, Normocephalic Neck: Supple, 2+ carotid pulse no bruit Respiratory: Diminished, Crackles/rales Cardiovascular: No edema, Regular rate/rhythm, Normal S1 S2 Capillary refill: <2 Seconds Gastrointestinal: Soft and benign, W/out hepatosplenomegaly Musculoskeletal: No clubbing, No swelling Integumentary: No rashes Neurological: Normal speech, Normal strength at 5/5 x4 extr Lymphatics: No axilla or inguinal lymphadenopathy Assessment & Plan - Problems (Diagnosis) (1) Sepsis with acute hypoxic respiratory failure Current Visit: Yes Status: Acute (2) Pneumonia due to COVID-19 virus Current Visit: Yes Status: Acute Physician Review Additional Text: Acute hypoxic respiratory failure Pneumonia due to COVID 19 Hypertension Obesity Hypernatremia Plan still on BiPAP, Trying to titrate oxygen requirement Monitor closely under telemetry Appreciate Pulmonology consult on steroids and empiric antibiotics ,Remdesivir Anticoagulation convalescent plasma Leucocytosis noted Monitor renal parameters Hypernatremia slightly better today Encouraged p.o. fluids, added on Ensure Monitor CBC CMP in a.m. GI/DVT prophylaxis Prognosis guarded Time Spent Managing Pts Care (In Minutes): 45
[2019-09-07] MEDS: NIFEdipine 10 MG CAP PO SCH ×2 (11:53→21:00)
[2019-09-07] MEDS: SPIRONOLACTONE 25 MG TABLET PO SCH (12:01)
[2019-09-07] MEDS: LORazepam 2 MG/ML VIAL IV PRN (14:00)
[2019-09-07 14:45] LABS: Urine Appearance CLEAR; Urine Bilirubin NEGATIVE (NEG); Urine Blood NEGATIVE (NEG); Urine Color YELLOW; Urine Glucose NEGATIVE (NEG); Urine Protein 1+ (NEG); Urine Specific Gravity 1.025 (1.005-1.030)
[2019-09-07 14:47] LABS: Urine Microscopic Reflex ORDER UMIC
[2019-09-07 15:01] LABS: Urine Bacteria <20 /HPF (NONE SEEN); Urine Culture Reflex Order NOT NEEDED; Urine RBC <5 /HPF (NONE SEEN)
[2019-09-07 18:38] LABS: Arterial Blood Carboxyhemoglob 0.7 % (0-1.5); Blood Gas Oxyhemoglobin 88.6 % (94-97); Blood O2 Saturation 89.9 % (92-98.5)
[2019-09-08] MEDS: LORazepam 2 MG/ML VIAL IV PRN ×2 (01:17→08:00)
[2019-09-08 05:48] LABS: Absolute Lymphocytes (CBC) 0.7 K/uL (0.7-4.9); Basophils % 0.2 % (0-1.3); Hematocrit 42.2 % (39.6-49.0); Lymphocytes % 5.9 % (15.3-44.8); MPV 9.1 fL (7.6-11.3)
[2019-09-08 06:12] LABS: ALT/SGPT 44 U/L (12-78); AST/SGOT 30 U/L (15-37); Albumin 2.3 g/dL (3.4-5.0); Alkaline Phosphatase 38 U/L (45-117); BUN Blood Urea Nitrogen 25 mg/dL (7-18); Bicarbonate 28 mmol/L (21-32); Bilirubin Total 0.7 mg/dL (0.2-1.0); Glucose Level 110 mg/dL (74-106); Potassium 3.3 mmol/L (3.5-5.1); Protein, Total 6.6 g/dL (6.4-8.2); Sodium Level 149 mmol/L (136-145)
[2019-09-08 08:01] LABS: Blood Morphology Comment NOT SEEN (NOT SEEN); Platelet Estimate ADEQ
[2019-09-08] MEDS: BUDESONIDE 0.5 MG/2 ML NEB NEB SCH ×2 (08:12→21:33)
[2019-09-08] MEDS ORDERED: METHYLPREDNISOLONE 125 MG INJ IV ONE (08:49)
[2019-09-08] MEDS: NIFEdipine 10 MG CAP PO SCH ×4 (09:00→22:30)
[2019-09-08] MEDS ORDERED: METHYLPREDNISOLONE 40 MG INJ IV SCH (09:00)
[2019-09-08] MEDS: LOSARTAN POTASSIUM 50 MG TABLET PO SCH ×2 (09:00→09:11)
[2019-09-08] MEDS: ASCORBIC ACID 500 MG TABLET PO SCH ×4 (09:00→20:01)
[2019-09-08] MEDS: MULTIVITAMIN TAB PO SCH ×2 (09:00→09:06)
[2019-09-08] MEDS: APIXABAN 5 MG TABLET PO SCH ×3 (09:00→19:59)
[2019-09-08] MEDS: SPIRONOLACTONE 25 MG TABLET PO SCH ×2 (09:00→09:10)
[2019-09-08] MEDS: FAMOTIDINE 20 MG/2 ML VIAL IV SCH ×2 (09:06→20:01)
[2019-09-08] MEDS: CEFTRIAXONE/SWI 1gm 1 GM/10 ML SYR IVP SCH (09:06)
[2019-09-08] MEDS: METOPROLOL TAR 50 MG TAB PO SCH (09:07)
[2019-09-08] MEDS: THIAMINE HCL 100 MG TABLET PO SCH (09:07)
[2019-09-08] MEDS: BENZONATATE 100 MG CAP PO PRN (09:09)
[2019-09-08] MEDS: ZINC SULFATE 220 MG CAP PO SCH (09:12)
[2019-09-08] MEDS ORDERED: FENTANYL CITR 100 MCG/2 ML ONE (10:00)
--- NOTE | 2019-09-08 10:14 | RAD REPORT ---
EXAM DESCRIPTION: Linda Single View09/08/2019 7:10 am CLINICAL HISTORY: Cough COMPARISON: September 06, 2019 FINDINGS: Worsening in left and mild improvement in right pulmonary opacities The heart is normal size IMPRESSION: Worsening in left and mild improvement in right pulmonary opacities consistent with pneu monia
--- NOTE | 2019-09-08 10:24 | P.PN ---
Subjective Date of Service: 09/08/19 Chief Complaint: Respiratory failure due to garcia virus Subjective: Worsening, Other (Patient is more drowsy, tachypneic, saturating upper 80s) Review of Systems is unable to be obtained Physical Examination - Vital Signs Temperature: 99.7 F Blood Pressure: 143/84 Pulse: 123 Respirations: 44 Pulse Ox (%): 91 - Physical Exam General: Obese, Other (Drowsy) HEENT: Atraumatic, Normocephalic Neck: Supple Respiratory: Diminished, Crackles/rales Cardiovascular: Regular rate/rhythm, Normal S1 S2 Capillary refill: <2 Seconds Gastrointestinal: Soft and benign, W/out hepatosplenomegaly Musculoskeletal: No clubbing, No swelling Integumentary: No rashes Neurological: Other (Drowsy , Moves all the limbs ) Lymphatics: No axilla or inguinal lymphadenopathy - Studies Microbiology Data (last 24 hrs): 09/02/19 11:57 Blood - Blood Aerobic Blood Culture - Final No growth in 5 days. 09/02/19 11:57 Blood - Blood Anaerobic Blood Culture - Final No growth in 5 days. 09/02/19 11:50 Blood - Blood Aerobic Blood Culture - Final No growth in 5 days. 09/02/19 11:50 Blood - Blood Anaerobic Blood Culture - Final No growth in 5 days. Assessment & Plan - Problems (Diagnosis) (1) Sepsis with acute hypoxic respiratory failure Current Visit: Yes Status: Acute (2) Pneumonia due to COVID-19 virus Current Visit: Yes Status: Acute Physician Review Additional Text: Acute hypoxic respiratory failure Pneumonia due to COVID 19 Hypertension Morbid Obesity Hypernatremia Plan Monitor closely in ICU On BiPAP continuously Patient is getting more drowsy Will try to prone the patient Pain control Monitor closely under telemetry Appreciate Pulmonology consult on steroids and empiric antibiotics ,Remdesivir Anticoagulation convalescent plasma Leucocytosis noted Monitor renal parameters GI/DVT prophylaxis Prognosis guarded Patient may get intubated if proning fails Time Spent Managing Pts Care (In Minutes): 45
--- NOTE | 2019-09-08 12:54 | P.PN ---
Subjective Date of Service: 09/08/19 Chief Complaint: Respiratory failure due to garcia virus Patient is still requiring a high concentrations of oxygen on BiPAP Physical Examination - Vital Signs Temperature: 99.7 F Blood Pressure: 143/84 Pulse: 123 Respirations: 44 Pulse Ox (%): 91 - Studies Microbiology Data (last 24 hrs): 09/02/19 11:57 Blood - Blood Aerobic Blood Culture - Final No growth in 5 days. 09/02/19 11:57 Blood - Blood Anaerobic Blood Culture - Final No growth in 5 days. 09/02/19 11:50 Blood - Blood Aerobic Blood Culture - Final No growth in 5 days. 09/02/19 11:50 Blood - Blood Anaerobic Blood Culture - Final No growth in 5 days. Assessment & Plan - Problems (Diagnosis) (1) Respiratory failure Current Visit: Yes Status: Acute Plan: Will try put prone position today increase supplements and doses of IV steroids and the med trial until 4:00 p.m. may need to be intubated labs reviewed mildly hypernatremic patient's CRP level is 20 blood pressure control Qualifiers: Chronicity: acute Physician Review Additional Text: Acute hypoxic respiratory failure Pneumonia due to COVID 19 Hypertension Morbid Obesity Hypernatremia Plan Monitor closely in ICU On BiPAP continuously Patient is getting more drowsy Will try to prone the patient Pain control Monitor closely under telemetry Appreciate Pulmonology consult on steroids and empiric antibiotics ,Remdesivir Anticoagulation convalescent plasma Leucocytosis noted Monitor renal parameters GI/DVT prophylaxis Prognosis guarded Patient may get intubated if proning fails
[2019-09-08] MEDS: FENTANYL CITR 100 MCG/2 ML IV PRN ×2 (12:59→20:02)
[2019-09-08] MEDS ORDERED: LORazepam 2 MG/ML VIAL IV PRN (16:04)
[2019-09-08] MEDS: METHYLPREDNISOLONE 40 MG INJ IV SCH (17:28)
[2019-09-08] MEDS ORDERED: METHYLPREDNISOLONE 40 MG INJ ONE (17:37)
[2019-09-08] MEDS: ATORVASTATIN 40 MG TAB PO SCH (19:59)
[2019-09-08] MEDS: MELATONIN 3 MG TABLET PO SCH (20:00)
[2019-09-09] MEDS: METHYLPREDNISOLONE 40 MG INJ IV SCH ×3 (00:26→17:10)
[2019-09-09] MEDS: FENTANYL CITR 100 MCG/2 ML IV PRN ×3 (00:30→11:33)
[2019-09-09 04:49] LABS: Absolute Lymphocytes (CBC) 0.5 K/uL (0.7-4.9); Basophils % 0.2 % (0-1.3); Hematocrit 41.7 % (39.6-49.0); Lymphocytes % 3.8 % (15.3-44.8); MPV 9.1 fL (7.6-11.3); RBC Red Blood Cell Count 5.02 M/uL (4.33-5.43)
[2019-09-09 05:04] LABS: ALT/SGPT 39 U/L (12-78); AST/SGOT 27 U/L (15-37); Albumin 2.2 g/dL (3.4-5.0); Alkaline Phosphatase 35 U/L (45-117); BUN Blood Urea Nitrogen 26 mg/dL (7-18); Bicarbonate 28 mmol/L (21-32); Bilirubin Total 0.6 mg/dL (0.2-1.0); Glucose Level 141 mg/dL (74-106); Potassium 3.9 mmol/L (3.5-5.1); Protein, Total 6.8 g/dL (6.4-8.2); Sodium Level 144 mmol/L (136-145)
[2019-09-09] MEDS: METOPROLOL TAR 50 MG TAB PO SCH (07:46)
[2019-09-09] MEDS: VITAMIN D 1000 UNIT TAB PO SCH (07:47)
[2019-09-09] MEDS: SPIRONOLACTONE 25 MG TABLET PO SCH (07:48)
[2019-09-09] MEDS: APIXABAN 5 MG TABLET PO SCH ×2 (07:48→19:39)
[2019-09-09] MEDS: THIAMINE HCL 100 MG TABLET PO SCH (07:48)
[2019-09-09] MEDS: LOSARTAN POTASSIUM 50 MG TABLET PO SCH (07:48)
[2019-09-09] MEDS: FAMOTIDINE 20 MG/2 ML VIAL IV SCH ×2 (07:48→19:38)
[2019-09-09] MEDS: MULTIVITAMIN TAB PO SCH (07:49)
[2019-09-09] MEDS: ZINC SULFATE 220 MG CAP PO SCH (07:49)
[2019-09-09] MEDS: ASCORBIC ACID 500 MG TABLET PO SCH ×3 (07:49→19:39)
[2019-09-09] MEDS: NIFEdipine 10 MG CAP PO SCH ×2 (07:56→19:40)
--- NOTE | 2019-09-09 08:08 | RAD REPORT ---
EXAM DESCRIPTION: RAD - Chest Single View - 09/09/2019 6:10 am CLINICAL HISTORY: pneumonia COMPARISON: September 07 TECHNIQUE: AP portable chest image was obtained 09/09/2019 6:10 am . FINDINGS: Dense airspace opacification in the mid and lower left lung field has shown improvement. S ubstantial infiltrate remains. Right lung field opacification appear slightly worse. Trachea is midli ne. Cardiac silhouette is enlarged but stable. Vasculature is prominent but stable. No pneumothorax s een. No enlarging pleural effusion. No acute bony abnormality seen. No acute aortic findings suspecte d. IMPRESSION: Patient demonstrates a mixed pattern. The left lung field has improved since prior day i maging. Right lung field is slightly worse. Patient can be monitored for possible failure/volume overload concurrent with pneumonia. This might e xplain the mixed findings in the lung woods.
[2019-09-09] MEDS: BUDESONIDE 0.5 MG/2 ML NEB NEB SCH ×2 (08:34→20:00)
--- NOTE | 2019-09-09 09:55 | P.PN ---
Subjective Date of Service: 09/09/19 Chief Complaint: Respiratory failure due to garcia virus Physical Examination - Vital Signs Temperature: 98.4 F Blood Pressure: 148/95 Pulse: 97 Respirations: 26 Pulse Ox (%): 97 Assessment & Plan - Problems (Diagnosis) (1) Sepsis with acute hypoxic respiratory failure Current Visit: Yes Status: Acute (2) Pneumonia due to COVID-19 virus Current Visit: Yes Status: Acute Physician Review Additional Text: Acute hypoxic respiratory failure Pneumonia due to COVID 19 Hypertension Morbid Obesity Hypernatremia Plan Monitor closely in ICU On BiPAP continuously Patient is getting more drowsy Will try to prone the patient Pain control Monitor closely under telemetry Appreciate Pulmonology consult on steroids and empiric antibiotics ,Remdesivir Anticoagulation convalescent plasma Leucocytosis noted Monitor renal parameters GI/DVT prophylaxis Prognosis guarded Patient may get intubated if proning fails
[2019-09-09] MEDS ORDERED: METHYLPREDNISOLONE 125 MG INJ IV ONE (12:22)
--- NOTE | 2019-09-09 12:25 | P.PN ---
Subjective Date of Service: 09/09/19 Chief Complaint: Respiratory failure due to garcia virus Patient is improving he is less tachycardic still requiring high concentrations of oxygen Physical Examination - Vital Signs Temperature: 98.4 F Blood Pressure: 148/95 Pulse: 97 Respirations: 26 Pulse Ox (%): 97 Assessment & Plan - Problems (Diagnosis) (1) Respiratory failure Current Visit: Yes Status: Acute Plan: Respiratory failure from garcia virus I have given him an additional dose of Solu-Medrol 125 mg CRP levels are elevated still 100% oxygen continue with prone positioning Qualifiers: Chronicity: acute
[2019-09-09] MEDS: MELATONIN 3 MG TABLET PO SCH (19:39)
[2019-09-09] MEDS: ATORVASTATIN 40 MG TAB PO SCH (19:39)
[2019-09-09] MEDS ORDERED: ATORVASTATIN 40 MG TAB PO SCH (21:00)
[2019-09-09] MEDS ORDERED: MELATONIN 3 MG TABLET PO SCH (21:00)
[2019-09-09] MEDS: BENZONATATE 100 MG CAP PO PRN (21:17)
[2019-09-10] MEDS: METHYLPREDNISOLONE 40 MG INJ IV SCH (00:30)
[2019-09-10 06:20] LABS: BUN Blood Urea Nitrogen 33 mg/dL (7-18); Bicarbonate 30 mmol/L (21-32); Glucose Level 150 mg/dL (74-106); Magnesium 2.5 mg/dL (1.8-2.4); Phosphorus 3.3 mg/dL (2.5-4.9); Potassium 3.9 mmol/L (3.5-5.1); Sodium Level 147 mmol/L (136-145)
[2019-09-10] MEDS ORDERED: POTASSIUM 25 MEQ EFFERV TAB PO ONE (08:00)
--- NOTE | 2019-09-10 08:30 | RAD REPORT ---
EXAM DESCRIPTION: RAD - Chest Single View - 09/10/2019 6:58 am CLINICAL HISTORY: pneumonia Chest pain. COMPARISON: Chest Single View dated 09/09/2019; Chest Single View dated 09/08/2019; Chest Single View dated 09/06/2019; Chest Single View dated 09/05/2019 FINDINGS: Portable technique limits examination quality. Extensive bilateral pulmonary opacities are again noted without significant interval change since com parative study. The heart is upper limit normal in size. No displaced fractures. IMPRESSION: Stable chest since 09/09/2019.
[2019-09-10] MEDS: FAMOTIDINE 20 MG/2 ML VIAL IV SCH ×2 (08:50→20:06)
[2019-09-10] MEDS: BUDESONIDE 0.5 MG/2 ML NEB NEB SCH (08:50)
[2019-09-10] MEDS: MULTIVITAMIN TAB PO SCH (08:51)
[2019-09-10] MEDS: ASCORBIC ACID 500 MG TABLET PO SCH ×3 (08:51→20:07)
[2019-09-10] MEDS: VITAMIN D 1000 UNIT TAB PO SCH (08:51)
[2019-09-10] MEDS: SPIRONOLACTONE 25 MG TABLET PO SCH ×2 (08:51→20:08)
[2019-09-10] MEDS: APIXABAN 5 MG TABLET PO SCH ×2 (08:52→20:08)
[2019-09-10] MEDS: METOPROLOL TAR 50 MG TAB PO SCH (08:52)
[2019-09-10] MEDS: ZINC SULFATE 220 MG CAP PO SCH (08:52)
[2019-09-10] MEDS: LOSARTAN POTASSIUM 50 MG TABLET PO SCH (08:52)
[2019-09-10] MEDS: THIAMINE 200 MG/2 ML INJ IVP SCH ×2 (08:53→20:07)
[2019-09-10] MEDS: NIFEdipine 10 MG CAP PO SCH ×2 (08:53→20:05)
[2019-09-10] MEDS ORDERED: VITAMIN D 1000 UNIT TAB PO SCH ×2 (09:00)
[2019-09-10] MEDS ORDERED: METHYLPREDNISOLONE 125 MG INJ IV SCH (09:00)
--- NOTE | 2019-09-10 09:08 | P.PN ---
Subjective Date of Service: 09/10/19 Chief Complaint: Respiratory failure due to garcia virus Subjective: No new changes, Other (More awake alert Sitting at the side of the bed) Review of Systems is unable to be obtained Physical Examination - Vital Signs Temperature: 97.3 F Blood Pressure: 117/93 Pulse: 110 Respirations: 12 Pulse Ox (%): 92 - Physical Exam General: Alert, Obese HEENT: Atraumatic, Normocephalic Neck: Supple Respiratory: Diminished, Crackles/rales Cardiovascular: Regular rate/rhythm, Normal S1 S2 Capillary refill: <2 Seconds Gastrointestinal: Soft and benign, W/out hepatosplenomegaly Musculoskeletal: No clubbing, No swelling Integumentary: No rashes Neurological: Other (Alert, Awake ) Lymphatics: No axilla or inguinal lymphadenopathy Assessment & Plan - Problems (Diagnosis) (1) Sepsis with acute hypoxic respiratory failure Current Visit: Yes Status: Acute (2) Pneumonia due to COVID-19 virus Current Visit: Yes Status: Acute Physician Review Additional Text: Acute hypoxic respiratory failure Pneumonia due to COVID 19 Hypertension Morbid Obesity Hypernatremia Plan Monitor closely in ICU On BiPAP continuously proned the patient Pain control Monitor closely under telemetry Appreciate Pulmonology consult on steroids and empiric antibiotics ,Remdesivir Anticoagulation s/p convalescent plasma Monitor renal parameters Chest x-ray repeated No acute changes Continues same measures GI/DVT prophylaxis Prognosis guarded
[2019-09-10] MEDS: METHYLPREDNISOLONE 125 MG INJ IV SCH (20:06)
[2019-09-10] MEDS: ATORVASTATIN 40 MG TAB PO SCH (20:07)
[2019-09-10] MEDS: MELATONIN 3 MG TABLET PO SCH (20:08)
[2019-09-11] MEDS: HYDRALAZINE HCL 20 MG/ML VIAL IV PRN ×2 (05:16→21:00)
[2019-09-11] MEDS: ZINC SULFATE 220 MG CAP PO SCH (09:00)
[2019-09-11] MEDS: MULTIVITAMIN TAB PO SCH (09:00)
[2019-09-11] MEDS: METHYLPREDNISOLONE 125 MG INJ IV SCH ×2 (09:00→16:51)
[2019-09-11] MEDS: ASCORBIC ACID 500 MG TABLET PO SCH ×3 (09:00→21:00)
[2019-09-11] MEDS: SPIRONOLACTONE 25 MG TABLET PO SCH ×3 (09:01→21:00)
[2019-09-11] MEDS: NIFEdipine 10 MG CAP PO SCH ×2 (09:01→21:00)
[2019-09-11] MEDS: VITAMIN D 1000 UNIT TAB PO SCH (09:02)
[2019-09-11] MEDS: APIXABAN 5 MG TABLET PO SCH ×2 (09:02→21:00)
[2019-09-11] MEDS: THIAMINE 200 MG/2 ML INJ IVP SCH ×2 (09:03→21:00)
[2019-09-11] MEDS: FAMOTIDINE 20 MG/2 ML VIAL IV SCH ×2 (09:03→21:00)
[2019-09-11 09:24] LABS: Absolute Lymphocytes (CBC) 0.5 K/uL (0.7-4.9); Basophils % 0.3 % (0-1.3); Hematocrit 44.1 % (39.6-49.0); Lymphocytes % 4.1 % (15.3-44.8); MPV 9.7 fL (7.6-11.3); RBC Red Blood Cell Count 5.29 M/uL (4.33-5.43)
[2019-09-11 09:41] LABS: ALT/SGPT 35 U/L (12-78); AST/SGOT 12 U/L (15-37); Albumin 2.4 g/dL (3.4-5.0); Alkaline Phosphatase 36 U/L (45-117); BUN Blood Urea Nitrogen 34 mg/dL (7-18); Bicarbonate 31 mmol/L (21-32); Bilirubin Total 0.7 mg/dL (0.2-1.0); Glucose Level 148 mg/dL (74-106); Potassium 3.4 mmol/L (3.5-5.1); Protein, Total 6.8 g/dL (6.4-8.2); Sodium Level 148 mmol/L (136-145)
--- NOTE | 2019-09-11 11:09 | P.PN ---
Subjective Date of Service: 09/11/19 Chief Complaint: Respiratory failure due to garcia virus Subjective: No new changes, Other (Still on continuous BiPAP) Review of Systems 10-point ROS is otherwise unremarkable Physical Examination - Vital Signs Temperature: 97.4 F Blood Pressure: 114/55 Pulse: 105 Respirations: 32 Pulse Ox (%): 91 - Physical Exam General: Alert, Moderate distress, Obese HEENT: Atraumatic, Normocephalic Neck: Supple Respiratory: Diminished, Crackles/rales Cardiovascular: Regular rate/rhythm, Normal S1 S2 Capillary refill: <2 Seconds Gastrointestinal: Soft and benign, W/out hepatosplenomegaly Musculoskeletal: No clubbing, No contractures Integumentary: No rashes Neurological: Other (Alert,Awake ) Lymphatics: No axilla or inguinal lymphadenopathy Assessment & Plan - Problems (Diagnosis) (1) Sepsis with acute hypoxic respiratory failure Current Visit: Yes Status: Acute (2) Pneumonia due to COVID-19 virus Current Visit: Yes Status: Acute Physician Review Additional Text: Acute hypoxic respiratory failure Pneumonia due to COVID 19 Hypertension Morbid Obesity Hypernatremia Plan Monitor closely in ICU On BiPAP continuously Monitor closely under telemetry Appreciate Pulmonology consult on steroids and empiric antibiotics ,Remdesivir Anticoagulation s/p convalescent plasma Monitor renal parameters Increase the dose of steroids CRP levels trending down GI/DVT prophylaxis Prognosis guarded Time Spent Managing Pts Care (In Minutes): 42
--- NOTE | 2019-09-11 12:59 | P.PN ---
Subjective Date of Service: 09/11/19 Chief Complaint: Respiratory failure due to garcia virus condition stable oxygen requirements have been declining Physical Examination - Vital Signs Temperature: 97.4 F Blood Pressure: 114/55 Pulse: 105 Respirations: 32 Pulse Ox (%): 91 Assessment & Plan - Problems (Diagnosis) (1) Respiratory failure Current Visit: Yes Status: Acute Plan: respiratory failure slowly improving still requiring high concentrations of oxygen CRP is declining agree with higher doses off Solu-Medrol blood pressure under control Qualifiers: Chronicity: acute
[2019-09-11] MEDS ORDERED: POTASSIUM CL SA 10 MEQ TAB PO ONE (21:00)
[2019-09-11] MEDS: MELATONIN 3 MG TABLET PO SCH (21:00)
[2019-09-11] MEDS: ATORVASTATIN 40 MG TAB PO SCH (21:00)
[2019-09-12 05:13] LABS: BUN Blood Urea Nitrogen 32 mg/dL (7-18); Bicarbonate 29 mmol/L (21-32); Glucose Level 183 mg/dL (74-106); Sodium Level 146 mmol/L (136-145)
[2019-09-12] MEDS: THIAMINE 200 MG/2 ML INJ IVP SCH ×2 (08:20→20:17)
[2019-09-12] MEDS: METHYLPREDNISOLONE 125 MG INJ IV SCH ×3 (08:22→17:00)
[2019-09-12] MEDS: FAMOTIDINE 20 MG/2 ML VIAL IV SCH ×2 (08:24→20:17)
[2019-09-12] MEDS: NIFEdipine 10 MG CAP PO SCH ×2 (08:25→20:15)
[2019-09-12] MEDS: MULTIVITAMIN TAB PO SCH (08:27)
[2019-09-12] MEDS: APIXABAN 5 MG TABLET PO SCH ×2 (08:28→20:17)
[2019-09-12] MEDS: VITAMIN D 1000 UNIT TAB PO SCH (08:29)
[2019-09-12] MEDS: ASCORBIC ACID 500 MG TABLET PO SCH ×3 (08:30→20:16)
[2019-09-12] MEDS: ZINC SULFATE 220 MG CAP PO SCH (08:32)
[2019-09-12] MEDS: SPIRONOLACTONE 25 MG TABLET PO SCH ×2 (09:00→20:16)
--- NOTE | 2019-09-12 09:33 | P.PN ---
Subjective Date of Service: 09/12/19 Chief Complaint: Respiratory failure due to garcia virus Subjective: No new changes, Other (No acute changes denies any chest pain) Review of Systems 10-point ROS is otherwise unremarkable Physical Examination - Vital Signs Temperature: 97.2 F Blood Pressure: 166/93 Pulse: 85 Respirations: 27 Pulse Ox (%): 90 - Physical Exam General: Alert, Oriented x3, Obese HEENT: Atraumatic, Normocephalic Neck: Supple Respiratory: Diminished, Crackles/rales Cardiovascular: Regular rate/rhythm, Normal S1 S2 Capillary refill: <2 Seconds Gastrointestinal: Soft and benign, W/out hepatosplenomegaly Musculoskeletal: No clubbing, No swelling Integumentary: No rashes, No breakdown Neurological: Other (Alert awake, nonfocal) Lymphatics: No axilla or inguinal lymphadenopathy Assessment & Plan - Problems (Diagnosis) (1) Sepsis with acute hypoxic respiratory failure Current Visit: Yes Status: Acute Qualifiers: Sepsis type: sepsis due to unspecified organism Severe sepsis shock status: without septic shock Qualified Code(s): A41.9 - Sepsis, unspecified organism; R65.20 - Severe sepsis without septic shock; J96.01 - Acute respiratory failure with hypoxia (2) Pneumonia due to COVID-19 virus Current Visit: Yes Status: Acute Physician Review Additional Text: Acute hypoxic respiratory failure Pneumonia due to COVID 19 Hypertension Morbid Obesity Hypernatremia Plan Monitor closely in telemetry in ICU On BiPAP continuously Will try to wean down oxygen requirement Monitor closely under telemetry Appreciate Pulmonology consult on steroids and empiric antibiotics ,Remdesivir Anticoagulation s/p convalescent plasma Monitor renal parameters Increased the dose of steroids CRP levels trending down electrolytes monitored and correct accordingly GI/DVT prophylaxis Prognosis guarded Time Spent Managing Pts Care (In Minutes): 42
[2019-09-12] MEDS: LORazepam 2 MG/ML VIAL IV PRN (09:35)
[2019-09-12 11:27] LABS: Arterial Blood Carboxyhemoglob 0.7 % (0-1.5); Blood Gas Oxyhemoglobin 90.7 % (94-97); Blood O2 Saturation 92.2 % (92-98.5)
[2019-09-12] MEDS: ATORVASTATIN 40 MG TAB PO SCH (20:16)
[2019-09-12] MEDS: MELATONIN 3 MG TABLET PO SCH (20:16)
[2019-09-13] MEDS: METHYLPREDNISOLONE 125 MG INJ IV SCH ×3 (00:09→16:14)
[2019-09-13] MEDS: VITAMIN D 1000 UNIT TAB PO SCH (08:18)
[2019-09-13] MEDS: ASCORBIC ACID 500 MG TABLET PO SCH ×3 (08:18→20:31)
[2019-09-13] MEDS: MULTIVITAMIN TAB PO SCH (08:18)
[2019-09-13] MEDS: NIFEdipine 10 MG CAP PO SCH ×2 (08:18→20:33)
[2019-09-13] MEDS: FAMOTIDINE 20 MG/2 ML VIAL IV SCH ×2 (08:19→20:33)
[2019-09-13] MEDS: APIXABAN 5 MG TABLET PO SCH ×2 (08:19→20:32)
[2019-09-13] MEDS: SPIRONOLACTONE 25 MG TABLET PO SCH ×2 (08:19→20:32)
[2019-09-13] MEDS: THIAMINE 200 MG/2 ML INJ IVP SCH ×2 (08:20→23:00)
[2019-09-13] MEDS: ZINC SULFATE 220 MG CAP PO SCH (08:20)
[2019-09-13 09:21] LABS: Absolute Lymphocytes (CBC) 0.5 K/uL (0.7-4.9); Basophils % 0.5 % (0-1.3); Lymphocytes % 3.2 % (15.3-44.8); MPV 10.2 fL (7.6-11.3); RBC Red Blood Cell Count 5.54 M/uL (4.33-5.43)
[2019-09-13 09:50] LABS: ALT/SGPT 61 U/L (12-78); AST/SGOT 30 U/L (15-37); Albumin 2.5 g/dL (3.4-5.0); Alkaline Phosphatase 42 U/L (45-117); BUN Blood Urea Nitrogen 26 mg/dL (7-18); Bicarbonate 30 mmol/L (21-32); Bilirubin Total 0.8 mg/dL (0.2-1.0); Glucose Level 172 mg/dL (74-106); Potassium 4.2 mmol/L (3.5-5.1); Protein, Total 6.7 g/dL (6.4-8.2); Sodium Level 145 mmol/L (136-145)
[2019-09-13] MEDS: FLUCONAZOLE 100 MG TAB PO SCH (10:12)
[2019-09-13 10:22] LABS: Blood Morphology Comment NOT SEEN (NOT SEEN); Platelet Estimate ADEQ; Urine White Blood Cell Casts OK
[2019-09-13] MEDS: FENTANYL CITR 100 MCG/2 ML IV PRN (10:22)
--- NOTE | 2019-09-13 10:41 | P.PN ---
Subjective Date of Service: 09/13/19 Chief Complaint: Respiratory failure due to garcia virus Subjective: No new changes Review of Systems 10-point ROS is otherwise unremarkable Physical Examination - Vital Signs Temperature: 97.2 F Blood Pressure: 134/69 Pulse: 117 Respirations: 23 Pulse Ox (%): 84 - Physical Exam General: Alert, Mild distress, Obese HEENT: Atraumatic, Normocephalic Neck: Supple Respiratory: Diminished, Crackles/rales Cardiovascular: Regular rate/rhythm, Normal S1 S2 Capillary refill: <2 Seconds Gastrointestinal: Soft and benign, W/out hepatosplenomegaly Musculoskeletal: No clubbing, No swelling Integumentary: No rashes Neurological: Other (Alert awake) Assessment & Plan - Problems (Diagnosis) (1) Sepsis with acute hypoxic respiratory failure Current Visit: Yes Status: Acute Qualifiers: Sepsis type: sepsis due to unspecified organism Severe sepsis shock status: without septic shock Qualified Code(s): A41.9 - Sepsis, unspecified organism; R65.20 - Severe sepsis without septic shock; J96.01 - Acute respiratory failure with hypoxia (2) Pneumonia due to COVID-19 virus Current Visit: Yes Status: Acute Physician Review Additional Text: Acute hypoxic respiratory failure Pneumonia due to COVID 19 Hypertension Morbid Obesity Hypernatremia Couse Monitor closely in telemetry in ICU On BiPAP continuously Will try to wean down oxygen requirement Monitor closely under telemetry Appreciate Pulmonology consult on steroids and had Remdesivir Continue Anticoagulation s/p convalescent plasma Monitor renal parameters Increased the dose of steroids and CRP is trending down Electrolytes monitored and correct accordingly Hypernatremia better GI/DVT prophylaxis Prognosis guarded Time Spent Managing Pts Care (In Minutes): 42
--- NOTE | 2019-09-13 11:30 | P.PN ---
Subjective Date of Service: 09/26/19 Chief Complaint: Respiratory failure due to garcia virus Condition stable still on same concentrations of oxygen subjectively feeling better Physical Examination - Vital Signs Temperature: 97.2 F Blood Pressure: 134/69 Pulse: 117 Respirations: 23 Pulse Ox (%): 84 Assessment & Plan - Problems (Diagnosis) (1) Respiratory failure Status: Acute Plan: Respiratory failure patient's CRP levels are declining labs reviewed blood pressure is under control continue to monitor Qualifiers: Chronicity: acute
--- NOTE | 2019-09-13 11:33 | P.PN ---
Subjective Date of Service: 09/26/19 Chief Complaint: Respiratory failure due to garcia virus Subjectively improving still requiring high concentrations of oxygen Physical Examination - Vital Signs Temperature: 97.2 F Blood Pressure: 134/69 Pulse: 117 Respirations: 23 Pulse Ox (%): 84 Assessment & Plan - Problems (Diagnosis) (1) Respiratory failure Status: Acute Plan: Respiratory failure CRP levels not declined to 10 PO2 is 64 on 75% FiO2 blood pressure not controlled prone positioning as tolerated Qualifiers: Chronicity: acute
[2019-09-13] MEDS: ATORVASTATIN 40 MG TAB PO SCH (20:32)
[2019-09-13] MEDS: MELATONIN 3 MG TABLET PO SCH (20:32)
[2019-09-14] MEDS: METHYLPREDNISOLONE 125 MG INJ IV SCH ×2 (00:44→08:21)
[2019-09-14] MEDS: APIXABAN 5 MG TABLET PO SCH ×2 (08:18→20:17)
[2019-09-14] MEDS: FLUCONAZOLE 100 MG TAB PO SCH (08:18)
[2019-09-14] MEDS: MULTIVITAMIN TAB PO SCH (08:19)
[2019-09-14] MEDS: ASCORBIC ACID 500 MG TABLET PO SCH ×3 (08:19→20:21)
[2019-09-14] MEDS: NIFEdipine 10 MG CAP PO SCH ×2 (08:19→20:18)
[2019-09-14] MEDS: ZINC SULFATE 220 MG CAP PO SCH (08:19)
[2019-09-14] MEDS: VITAMIN D 1000 UNIT TAB PO SCH (08:19)
[2019-09-14] MEDS: SPIRONOLACTONE 25 MG TABLET PO SCH ×2 (08:20→20:16)
[2019-09-14] MEDS: THIAMINE 200 MG/2 ML INJ IVP SCH ×2 (08:20→20:21)
[2019-09-14] MEDS: FAMOTIDINE 20 MG/2 ML VIAL IV SCH (08:20)
[2019-09-14] MEDS: GUAIFENESIN/CODEINE 5ML UCUP PO PRN ×2 (08:31→20:21)
--- NOTE | 2019-09-14 09:14 | P.PN ---
Subjective Date of Service: 09/26/19 (TV) Chief Complaint: Respiratory failure due to garcia virus Still SOB. REquiring high conc of O2 . O2 requirement reduced Physical Examination - Vital Signs Temperature: 98.2 F Blood Pressure: 153/78 Pulse: 114 Respirations: 29 Pulse Ox (%): 92 Assessment & Plan - Problems (Diagnosis) (1) Respiratory failure Status: Acute Plan: CRP now less than 20 , reduce dose of Solumedrol. Start neb pulmicort may help. Still on BIPAP O2 requirement s decreasingBP mildly levated Qualifiers: Chronicity: acute
[2019-09-14] MEDS ORDERED: FUROSEMIDE 20 MG/ 2ML VIAL IV ONE (10:00)
[2019-09-14 11:19] LABS: Arterial Blood Carboxyhemoglob 0.9 % (0-1.5); Blood Gas Oxyhemoglobin 85.1 % (94-97); Blood O2 Saturation 86.6 % (92-98.5)
[2019-09-14] MEDS: FENTANYL CITR 100 MCG/2 ML IV PRN (14:00)
--- NOTE | 2019-09-14 14:00 | P.PN ---
Subjective Date of Service: 09/14/19 Primary Care Provider: none Chief Complaint: Respiratory failure due to garcia virus Subjective: Other (Patient slightly improved since yesterday. Less requirement on BiPAP.) Physical Examination - Vital Signs Temperature: 98.4 F Blood Pressure: 108/57 Pulse: 116 Respirations: 35 Pulse Ox (%): 89 - Physical Exam General: Alert, Cooperative HEENT: Atraumatic Neck: Supple Respiratory: Other (Patient currently on BiPAP) Neurological: Normal speech, Normal strength at 5/5 x4 extr, Normal tone, Normal affect - Studies Medications List Reviewed: Yes Assessment & Plan Discharge Plan: Home Plan to discharge in: Greater than 2 days Physician Review Additional Text: Impression: Acute respiratory failure with hypoxia secondary to bilateral COVID 19 pneumonia complicated with suspected underlying obstructive sleep apnea Hypertension Morbid obesity, BMI 47 GERD Hyperglycemia Plan: Acute respiratory failure with hypoxia secondary to bilateral COVID 19 pneumonia complicated with suspected underlying obstructive sleep apnea: Continue to wean off BiPAP. Patient now using less Fi02 on BiPAP. Case discussed with pulm onology. Continue to monitor CRP and ferritin. Solu-Medrol decreased today. Patient has received Remdesivir and convalescent plasma during the course of his stay. Patient now on full-dose anti coagulation therapy-Eliquis. Continue to monitor closely. Patient also receiving vitamin-C, thiamine and melatonin. Pulmicort nebs added. Will monitor fluids closely. Patient on Aldactone at this time. Anticipate improvement over the next 72 hr. Hypertension: Blood pressure stable on Nifedipine. Morbid obesity, BMI 47: Continue to address diet. GERD: Continue with Pepcid Hyperglycemia: Likely related to IV steroids. Will check A1c. Time Spent Managing Pts Care (In Minutes): 55
[2019-09-14] MEDS ORDERED: CEFEPIME 1 GM/VIAL IV SCH (15:13)
--- NOTE | 2019-09-14 15:36 | RAD REPORT ---
EXAM DESCRIPTION: RAD - Chest Single View - 09/14/2019 3:24 pm CLINICAL HISTORY: Left-sided CP, shortness of breath, subcu emphysem Chest pain. COMPARISON: Chest Single View dated 09/10/2019; Chest Single View dated 09/09/2019; Chest Single View dated 09/08/2019; Chest Single View dated 09/06/2019 FINDINGS: Portable technique limits examination quality. A small left apical pneumothorax is likely present, new since comparative study in estimated 10% of l tarah volume. Subcutaneous emphysema is seen along the base the neck, greater on the left. Bilateral pu lmonary opacities are present, unchanged since prior study. The heart is upper limit normal in size. IMPRESSION: A small left-sided pneumothorax likely has developed estimated 10% lung volume. Dr. Bonilla was notified.
[2019-09-14] MEDS ORDERED: MORPHINE 2 MG/ML SYR IV ONE (16:00)
[2019-09-14] MEDS ORDERED: LORazepam 2 MG/ML VIAL IV ONE (16:00)
[2019-09-14] MEDS: METHYLPREDNISOLONE 40 MG INJ IV SCH (17:43)
--- NOTE | 2019-09-14 18:26 | RAD REPORT ---
EXAM DESCRIPTION: RAD - Chest Single View - 09/14/2019 6:17 pm CLINICAL HISTORY: pneumo Chest pain. COMPARISON: Chest Single View dated 09/14/2019; Chest Single View dated 09/10/2019; Chest Single View d ated 09/09/2019; Chest Single View dated 09/08/2019 FINDINGS: Portable technique limits examination quality. The patient's known small left apical pneumothorax appears stable since the comparative study. Extens christy bilateral pulmonary opacities appear unchanged. Subcutaneous emphysema at the base of the neck is stable.The heart is upper limit normal in size.
[2019-09-14] MEDS: CEFEPIME/SWI 1gm 10 ML IVP SCH (20:17)
[2019-09-14] MEDS: ATORVASTATIN 40 MG TAB PO SCH (20:17)
[2019-09-14] MEDS: MELATONIN 3 MG TABLET PO SCH (20:18)
[2019-09-14] MEDS: DOXYCYCLINE 100 MG in NA CHLORIDE 0.9% 100 ML IVPB SCH (20:20)
[2019-09-14] MEDS: PANTOPRAZOLE 40MG TABLET PO SCH (20:20)
[2019-09-14] MEDS: HYDRALAZINE HCL 20 MG/ML VIAL IV PRN (20:21)
[2019-09-14] MEDS ORDERED: FAMOTIDINE 20 MG TAB PO SCH (21:00)
[2019-09-14] MEDS: BUDESONIDE 0.5 MG/2 ML NEB NEB SCH (22:00)
[2019-09-14] MEDS: LORazepam 2 MG/ML VIAL IV PRN (23:00)
[2019-09-15] MEDS: METHYLPREDNISOLONE 40 MG INJ IV SCH ×3 (01:07→19:51)
--- NOTE | 2019-09-15 07:59 | RAD REPORT ---
EXAM DESCRIPTION: Linda Single View09/15/2019 7:03 am CLINICAL HISTORY: Chest pain COMPARISON: September 13 FINDINGS: Previously described left pneumothorax is not clearly seen on this exam No significant change in the diffuse bilateral pulmonary opacities Heart upper limits normal size Subcutaneous emphysema has improved
[2019-09-15] MEDS: BUDESONIDE 0.5 MG/2 ML NEB NEB SCH ×2 (08:10→20:30)
[2019-09-15] MEDS: VITAMIN D 1000 UNIT TAB PO SCH (09:00)
[2019-09-15] MEDS: MULTIVITAMIN TAB PO SCH (09:45)
[2019-09-15] MEDS: ZINC SULFATE 220 MG CAP PO SCH (09:45)
[2019-09-15] MEDS: NIFEdipine 10 MG CAP PO SCH ×2 (09:45→19:49)
[2019-09-15] MEDS: FLUCONAZOLE 100 MG TAB PO SCH (09:45)
[2019-09-15] MEDS: APIXABAN 5 MG TABLET PO SCH ×2 (09:46→19:50)
[2019-09-15] MEDS: PANTOPRAZOLE 40MG TABLET PO SCH ×2 (09:46→19:50)
[2019-09-15] MEDS: ASCORBIC ACID 500 MG TABLET PO SCH ×3 (09:46→19:50)
[2019-09-15] MEDS: SPIRONOLACTONE 25 MG TABLET PO SCH ×2 (09:46→19:50)
[2019-09-15] MEDS: THIAMINE 200 MG/2 ML INJ IVP SCH ×2 (09:47→19:51)
[2019-09-15] MEDS: DOXYCYCLINE 100 MG in NA CHLORIDE 0.9% 100 ML IVPB SCH ×2 (09:47→19:52)
[2019-09-15] MEDS: CEFEPIME/SWI 1gm 10 ML IVP SCH ×2 (09:50→19:49)
--- NOTE | 2019-09-15 10:12 | P.PN ---
Subjective Date of Service: 09/15/19 Primary Care Provider: none Chief Complaint: Respiratory failure due to garcia virus Patient is subjectively doing better still on 100% oxygen there is no progression of his pneumothorax subcutaneous emphysema is improved he feels better Physical Examination - Vital Signs Temperature: 97.3 F Blood Pressure: 168/108 Pulse: 111 Respirations: 28 Pulse Ox (%): 92 - Studies Medications List Reviewed: Yes Assessment & Plan - Problems (Diagnosis) (1) Respiratory failure Current Visit: Yes Status: Acute Plan: Respiratory failure appears to be improving subjectively feels better there is no progression of his pneumothorax subcutaneous emphysema is decreased CRP level is all less than 10 reduce the dose of steroids agree with antibiotic season high risk for infection pro calcitonin level is negative for weight blood cultures decrease Solu-Medrol to 40 mg IV Q 12 white count mildly elevated he is at risk for hospital-acquired infections plan to start decreasing his O2 Qualifiers: Chronicity: acute
--- NOTE | 2019-09-15 11:27 | P.PN ---
Subjective Date of Service: 09/15/19 Primary Care Provider: none Chief Complaint: Respiratory failure due to garcia virus Subjective: Improving (Patient appears improved since yesterday. Nurses reported improvement as well.) Physical Examination - Vital Signs Temperature: 97.3 F Blood Pressure: 168/108 Pulse: 111 Respirations: 28 Pulse Ox (%): 92 - Physical Exam General: Alert, Cooperative HEENT: Atraumatic Neck: Supple Respiratory: Other (Patient currently on BiPAP. Less shortness of breath noted. Less subcu emphysema felt) Cardiovascular: Normal pulses Neurological: Normal speech, Normal strength at 5/5 x4 extr, Normal tone, Normal affect - Studies Medications List Reviewed: Yes Assessment & Plan Discharge Plan: Home Plan to discharge in: Greater than 2 days Physician Review Additional Text: Impression: Acute respiratory failure with hypoxia secondary to bilateral COVID 19 pneumonia complicated with suspected underlying obstructive sleep apnea, subcutaneous emphysema and small less than 10% left-sided apical pneumothorax: Hypertension Morbid obesity, BMI 47 GERD Hyperglycemia with evidence of diabetes mellitus type 2 Plan: Acute respiratory failure with hypoxia secondary to bilateral COVID 19 pneumonia complicated with suspected underlying obstructive sleep apnea, subcutaneous emphysema and small less than 10% left-sided apical pneumothorax: Patient appears improved. Continue to wean off BiPAP. Repeat chest x-ray shows improvement in subcutaneous emphysema. Repeat chest x-ray shows no all normal thorax. Will continue to monitor closely with daily chest x-ray. Case discussed at length with pulmonology. Continue current medications including IV Solu-Medrol 40 mg twice daily. Continue to monitor CRP. Patient currently on cefepime, doxycycline and Diflucan to cover for secondary infection as the patient has been here since September 01. If blood cultures negative will consider discontinuing medication after that time. Patient has received convalescent plasma and Remdesivir during the course of his stay. Continue multi vitamins. Patient on full-dose anti coagulation therapy-Eliquis. Will continue monitor closely. Anticipate improvement and possible discharge in the next 2-5 days. I will turn the service over to the hospitalist team tomorrow. I will go over the plan of care with him. Hypertension: Blood pressure stable on Nifedipine. Patient also on Aldactone. Morbid obesity, BMI 47: Continue to address diet. GERD: Patient now on Protonix Hyperglycemia with evidence of diabetes mellitus type 2: A1c 6.4. Patient with diabetes. This is new diagnosis. Will monitor Accu-Cheks and provide sliding scale. Patient may require medication at discharge. Time Spent Managing Pts Care (In Minutes): 55
[2019-09-15] MEDS: LORazepam 2 MG/ML VIAL IV PRN ×2 (12:12→19:51)
[2019-09-15] MEDS: ATORVASTATIN 40 MG TAB PO SCH (19:51)
[2019-09-15] MEDS: MELATONIN 3 MG TABLET PO SCH (19:51)
--- NOTE | 2019-09-16 07:02 | RAD REPORT ---
EXAM DESCRIPTION: RAD - Chest Single View - 09/16/2019 5:34 am CLINICAL HISTORY: follow up pneumothorax COMPARISON: Portable September 14, portable September 13 TECHNIQUE: AP portable chest image was obtained 09/16/2019 5:34 am . FINDINGS: Previously detailed left apical pneumothorax has resolved or is poorly visualized. Large b savita habitus, supine positioning and portable technique are limiting. In the supine position a small p neumothorax could be come positioned anteriorly which would be occult on supine portable plain film. Patient has extensive bilateral airspace opacification. This is slightly worse than prior imaging. Ag ain, shallow inspiration and supine positioning may contribute to the accentuated disease. Cardiomediastinal silhouette is stable. IMPRESSION: Small left apical pneumothorax previously detailed is not clearly seen on the examinatio n. Due to supine positioning for this exam, any pneumothorax may become anteriorly positioned and rad iographically occult. Increased bilateral pulmonary alveolar opacification. This could be worsening of disease, artifact fr om supine shallow inspiration positioning or a combination.
[2019-09-16] MEDS: SPIRONOLACTONE 25 MG TABLET PO SCH ×2 (08:53→23:35)
[2019-09-16] MEDS: APIXABAN 5 MG TABLET PO SCH (08:54)
[2019-09-16] MEDS: ASCORBIC ACID 500 MG TABLET PO SCH ×3 (08:54→23:38)
[2019-09-16] MEDS: FLUCONAZOLE 100 MG TAB PO SCH (08:54)
[2019-09-16] MEDS: ZINC SULFATE 220 MG CAP PO SCH (08:54)
[2019-09-16] MEDS: PANTOPRAZOLE 40MG TABLET PO SCH ×2 (08:54→23:38)
[2019-09-16] MEDS: MULTIVITAMIN TAB PO SCH (08:54)
[2019-09-16] MEDS: CEFEPIME/SWI 1gm 10 ML IVP SCH ×2 (08:55→23:37)
[2019-09-16] MEDS: METHYLPREDNISOLONE 40 MG INJ IV SCH (08:55)
[2019-09-16] MEDS: THIAMINE 200 MG/2 ML INJ IVP SCH ×2 (08:55→23:38)
[2019-09-16] MEDS: NIFEdipine 10 MG CAP PO SCH ×2 (08:58→23:37)
[2019-09-16] MEDS: VITAMIN D 1000 UNIT TAB PO SCH (08:59)
[2019-09-16] MEDS: BUDESONIDE 0.5 MG/2 ML NEB NEB SCH ×2 (09:30→22:00)
[2019-09-16] MEDS: LORazepam 2 MG/ML VIAL IV PRN ×2 (11:10→17:36)
[2019-09-16 12:19] LABS: Absolute Lymphocytes (CBC) 0.5 K/uL (0.7-4.9); Basophils % 0.2 % (0-1.3); Hematocrit 48.5 % (39.6-49.0); Lymphocytes % 1.8 % (15.3-44.8); MPV 10.5 fL (7.6-11.3); RBC Red Blood Cell Count 5.78 M/uL (4.33-5.43)
--- NOTE | 2019-09-16 12:22 | P.PN ---
Subjective Date of Service: 09/16/19 Primary Care Provider: none Chief Complaint: Respiratory failure due to garcia virus Patient is not doing well chest x-ray looks worse yahir dose was decreased all the CRP level is less than 10 is ferritin level keeps on increasing still on high doses of oxygen Physical Examination - Vital Signs Temperature: 98.4 F Blood Pressure: 119/82 Pulse: 125 Respirations: 34 Pulse Ox (%): 87 - Studies Medications List Reviewed: Yes Assessment & Plan - Problems (Diagnosis) (1) Respiratory failure Current Visit: Yes Status: Acute Plan: Respiratory failure from garcia virus he is not improving patient has refused intubation will recheck his blood gas increase steroids again prognosis very poor will discuss again regarding intubation there is no evidence of pneumothorax patient's ferritin level is increasing 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
[2019-09-16 12:23] LABS: BUN Blood Urea Nitrogen 33 mg/dL (7-18); Bicarbonate 26 mmol/L (21-32); Glucose Level 166 mg/dL (74-106); Sodium Level 142 mmol/L (136-145)
[2019-09-16 12:28] LABS: Potassium 4.6 mmol/L (3.5-5.1)
[2019-09-16] MEDS: METHYLPREDNISOLONE 125 MG INJ IV SCH ×3 (12:57→23:39)
[2019-09-16 14:02] LABS: Blood Morphology Comment NOT SEEN (NOT SEEN); Platelet Estimate DECR; Platelets, Giant PRESENT
--- NOTE | 2019-09-16 14:23 | P.PN ---
Subjective Date of Service: 09/16/19 Primary Care Provider: none Chief Complaint: Respiratory failure due to garcia virus Subjective: Worsening, Other (Patient seen this morning on BiPAP. FiO2 of 100% but still desatting in the high 80s. He is tachypneic and tachycardic with a labored breathing. Patient has been hospitalized for 14 days and has refused intubation during this time. However, during conversation with new accounts clerk, he finally agreed. Pulmonary is okay with current management at high FiO2 as long as patient is satting in the high 80s and appears comfortable.) Physical Examination - Vital Signs Temperature: 98.4 F Blood Pressure: 119/82 Pulse: 125 Respirations: 34 Pulse Ox (%): 87 - Physical Exam General: Cooperative, Moderate distress, Obese, Other (Lethargic) HEENT: Atraumatic, Normocephalic Neck: Supple Respiratory: Diminished, Other (No wheezing heard) Cardiovascular: No edema, Other (Tachycardic) Gastrointestinal: Normal bowel sounds, Hypoactive, Soft and benign Musculoskeletal: No clubbing, No swelling, No contractures, No erythema, No tenderness, No warmth Neurological: Sensation intact, Normal affect - Studies Medications List Reviewed: Yes Assessment & Plan Physician Review Additional Text: Impression: Patient is a 38-year-old male with morbid obesity currently admitted in the ICU after presented with acute hypoxemic respiratory failure due to COVID-19 pneumonia. He is currently requiring maximum FiO2 while on noninvasive ventilation. Was a concern for a small left apical pneumothorax, which as an been captured on subsequent chest radiograph done today. However, the imaging is showing increased bilateral alveolar opacification suggesting worsening of disease. His vital signs are unstable as evidenced by tachycardia and tachypnea. Patient has received coronavirus convalescent plasma and rammed a severe during this hospitalization. Acute respiratory failure with hypoxia secondary to bilateral COVID 19 pneumonia complicated with suspected underlying obstructive sleep apnea, subcutaneous emphysema and small less than 10% left-sided apical pneumothorax: Hypertension Morbid obesity, BMI 47 GERD Hyperglycemia with evidence of diabetes mellitus type 2 Plan: Acute respiratory failure with hypoxia secondary to bilateral COVID 19 pneumonia complicated with suspected underlying obstructive sleep apnea, subcutaneous emphysema and small less than 10% left-sided apical pneumothorax: Patient IS NOT IMPROVING. FINALLY ACCEPTED TO BE INTUBATED IF DEEMED NECESSARY BY TREATMENT TEAM Will continue with BiPAP therapy for now, intubate with further respiratory discomfort Repeat procalcitonin due to up trending leukocytosis Reassess antibiotics based on procalcitonin results In the meantime, continue cefepime, doxycycline and Diflucan Continue current medications including IV Solu-Medrol 40 mg twice daily, apixaban, vitamin-B 1 and C, along with zinc. Patient is very critical, high risk for intubation Hypertension: Blood pressure stable on Nifedipine. Patient also on Aldactone. Morbid obesity, BMI 47: Continue to address diet. GERD: Patient now on Protonix Hyperglycemia with evidence of diabetes mellitus type 2: A1c 6.4. Will monit or Accu-Cheks and provide sliding scale while on systemic cortical steroids.
[2019-09-16] MEDS ORDERED: METHYLPREDNISOLONE 125 MG INJ IV SCH (18:00)
[2019-09-16 18:58] LABS: Arterial Blood Carboxyhemoglob 0.8 % (0-1.5); Blood Gas Oxyhemoglobin 85.9 % (94-97); Blood O2 Saturation 87.4 % (92-98.5)
[2019-09-16] MEDS: AA 5%/D20W/ELECTROLYTES-TPN 2,000 ML, Lipids 20% 250 ML with MULTIVITAMINS INJ 10 ML IV SCH ×3 (23:35)
[2019-09-16] MEDS: ATORVASTATIN 40 MG TAB PO SCH (23:36)
[2019-09-16] MEDS: ENOXAPARIN 100 MG/ML SYR SQ SCH (23:36)
[2019-09-16] MEDS: ENOXAPARIN 80 MG/0.8 ML SQ SCH (23:37)
[2019-09-16] MEDS: MELATONIN 3 MG TABLET PO SCH (23:37)
[2019-09-17] MEDS: METHYLPREDNISOLONE 125 MG INJ IV SCH ×3 (05:56→16:48)
[2019-09-17 08:23] LABS: Absolute Lymphocytes (CBC) 0.5 K/uL (0.7-4.9); Basophils % 0.1 % (0-1.3); Hematocrit 43.8 % (39.6-49.0); Lymphocytes % 3.5 % (15.3-44.8); MPV 10.6 fL (7.6-11.3); RBC Red Blood Cell Count 5.22 M/uL (4.33-5.43)
[2019-09-17] MEDS: ENOXAPARIN 80 MG/0.8 ML SQ SCH ×2 (08:24→20:53)
[2019-09-17] MEDS: THIAMINE 200 MG/2 ML INJ IVP SCH ×2 (08:25→20:56)
[2019-09-17] MEDS: SPIRONOLACTONE 25 MG TABLET PO SCH ×2 (08:25→20:52)
[2019-09-17] MEDS: FUROSEMIDE 20 MG/ 2ML VIAL IV SCH ×3 (08:25→20:52)
[2019-09-17] MEDS: ENOXAPARIN 100 MG/ML SYR SQ SCH ×2 (08:25→20:53)
[2019-09-17] MEDS: CEFEPIME/SWI 1gm 10 ML IVP SCH ×2 (08:25→20:52)
[2019-09-17] MEDS: FLUCONAZOLE 100 MG TAB PO SCH (08:26)
[2019-09-17] MEDS: NIFEdipine 10 MG CAP PO SCH ×2 (08:26→20:53)
[2019-09-17] MEDS: VITAMIN D 1000 UNIT TAB PO SCH (08:26)
[2019-09-17] MEDS: ASCORBIC ACID 500 MG TABLET PO SCH ×3 (08:26→20:52)
[2019-09-17] MEDS: PANTOPRAZOLE 40MG TABLET PO SCH ×2 (08:27→20:52)
[2019-09-17] MEDS: ZINC SULFATE 220 MG CAP PO SCH (08:27)
[2019-09-17] MEDS: LORazepam 2 MG/ML VIAL IV PRN ×3 (08:41→21:40)
[2019-09-17 09:06] LABS: Albumin 2.3 g/dL (3.4-5.0); Bilirubin Total 0.8 mg/dL (0.2-1.0); C-Reactive Protein 9.68 mg/L (<3.00); Ferritin 1078.2 ng/mL (26-388); Potassium 5.1 mmol/L (3.5-5.1); Protein, Total 6.1 g/dL (6.4-8.2)
[2019-09-17] MEDS: BUDESONIDE 0.5 MG/2 ML NEB NEB SCH ×2 (09:09→19:19)
[2019-09-17] MEDS ORDERED: GLUCAGON 1 MG/VIAL IM PRN ×2 (09:42→11:48)
[2019-09-17] MEDS ORDERED: D50W 25 GM/50 ML SYRINGE/VIAL IV PRN ×2 (09:42→11:48)
[2019-09-17] MEDS: INSULIN -REGULAR HUMAN 50 UNIT/0.5 ML ML SQ SCH ×2 (11:27→16:48)
[2019-09-17] MEDS ORDERED: INSULIN -REGULAR HUMAN 50 UNIT/0.5 ML ML SQ SCH (11:30)
--- NOTE | 2019-09-17 11:50 | P.PN ---
Subjective Date of Service: 09/26/19 Primary Care Provider: none Chief Complaint: Respiratory failure due to garcia virus Patient was worse yesterday but today his better he seems to get worse going to decrease the dose of his steroids feels better Physical Examination - Vital Signs Temperature: 98.0 F Blood Pressure: 126/68 Pulse: 110 Respirations: 29 Pulse Ox (%): 89 - Studies Medications List Reviewed: Yes Assessment & Plan - Problems (Diagnosis) (1) Respiratory failure Status: Acute Plan: Respiratory failure from garcia virus although is CRP levels are less than 10 is ferritin level is very elevated he is on higher doses of steroids of increase the dose of Diflucan patient is high risk for opportunistic fungal infection I have added some insulin currently on TPN patient is back on diuretic on maximum therapy 85% FiO2 Qualifiers: Chronicity: acute
--- NOTE | 2019-09-17 13:04 | P.PN ---
Subjective Date of Service: 09/17/19 Primary Care Provider: none Chief Complaint: Respiratory failure due to garcia virus Subjective: Improving (Mild improvement over the past 24 hours. Patient is less dyspneic. Still BIPAP-dependent but with less FIO2 requirement.) Physical Examination - Vital Signs Temperature: 98.0 F Blood Pressure: 126/68 Pulse: 110 Respirations: 29 Pulse Ox (%): 89 - Physical Exam General: In no apparent distress, Cooperative, Obese HEENT: Atraumatic, Normocephalic, EOMI Neck: Supple Respiratory: Diminished Cardiovascular: No edema, Normal pulses, Regular rate/rhythm, Normal S1 S2 Gastrointestinal: Soft and benign, Non-distended, No tenderness Musculoskeletal: No clubbing, No swelling, No contractures, No erythema, No tenderness, No warmth Integumentary: No rashes, No breakdown, No significant lesion, No tenderness/swelling Neurological: Sensation intact, Normal affect - Studies Medications List Reviewed: Yes Assessment & Plan - Problems (Diagnosis) (1) Pneumonia due to COVID-19 virus Current Visit: Yes Status: Acute (2) Respiratory failure Current Visit: Yes Status: Acute Qualifiers: Chronicity: acute (3) Sepsis with acute hypoxic respiratory failure Current Visit: Yes Status: Acute Qualifiers: Sepsis type: sepsis due to unspecified organism Severe sepsis shock status: without septic shock Qualified Code(s): A41.9 - Sepsis, unspecified organism; R65.20 - Severe sepsis without septic shock; J96.01 - Acute respiratory failure with hypoxia Physician Review Additional Text: Impression: Patient is a 38-year-old male with morbid obesity currently admitted in the ICU after presented with acute hypoxemic respiratory failure due to COVID-19 pneumonia. He is still requiring high FiO2 while on noninvasive ventilation. Recent CXR showed increased bilateral alveolar opacification suggesting worsening of disease. He is still tachypneic and critical. Patient has been here x 2 weeks, s/p coronavirus convalescent plasma and remdesivir during this hospitalization. Acute respiratory failure with hypoxia secondary to bilateral COVID 19 pneumonia complicated with suspected underlying obstructive sleep apnea, subcutaneous emphysema and small less than 10% left-sided apical pneumothorax: Hypertension Morbid obesity, BMI 47 GERD Hyperglycemia with evidence of diabetes mellitus type 2 Plan: Acute respiratory failure with hypoxia secondary to bilateral COVID 19 pneumonia complicated with suspected underlying obstructive sleep apnea, subcutaneous emphysema and small less than 10% left-sided apical pneumothorax: Stable to slight improvement High possibility for intubation if he remains BIPAP-dependent with max FiO2 requirement FINALLY ACCEPTED TO BE INTUBATED IF DEEMED NECESSARY BY TREATMENT TEAM No need to escalate antibiotics given negative procalcitonin Leukocytosis improved while on cefepime, doxycycline and Diflucan Continue current medications including IV Solu-Medrol 40 mg twice daily, apixaban, vitamin-B 1 and C, along with zinc. Patient is very critical Continue ICU stay Hypertension: Blood pressure stable on Nifedipine. Patient also on Aldactone. Morbid obesity, BMI 47: Continue to address diet. GERD: Patient now on Protonix Hyperglycemia with evidence of diabetes mellitus type 2: A1c 6.4. Will monitor Accu-Cheks and provide sliding scale while on systemic cortical steroids.
[2019-09-17] MEDS ORDERED: INSULIN 70/30 100 UNITS/ML SQ SCH (16:30)
[2019-09-17] MEDS: INSULIN 70/30 100 UNITS/ML SQ SCH (16:46)
[2019-09-17] MEDS: AA 5%/D20W/ELECTROLYTES-TPN 2,000 ML, Lipids 20% 250 ML with MULTIVITAMINS INJ 10 ML IV SCH ×3 (17:33)
[2019-09-17] MEDS: ATORVASTATIN 40 MG TAB PO SCH (20:52)
[2019-09-17] MEDS: MELATONIN 3 MG TABLET PO SCH (20:52)
[2019-09-17] MEDS: FENTANYL CITR 100 MCG/2 ML IV PRN (21:40)
[2019-09-18] MEDS: METHYLPREDNISOLONE 125 MG INJ IV SCH ×4 (00:10→18:10)
[2019-09-18] MEDS: INSULIN -REGULAR HUMAN 50 UNIT/0.5 ML ML SQ SCH ×5 (00:10→21:43)
[2019-09-18] MEDS: INSULIN 70/30 100 UNITS/ML SQ SCH ×2 (06:11→18:11)
[2019-09-18] MEDS: LORazepam 2 MG/ML VIAL IV PRN ×2 (06:55→10:25)
[2019-09-18] MEDS: FENTANYL CITR 100 MCG/2 ML IV PRN ×2 (06:55→10:25)
[2019-09-18] MEDS: BUDESONIDE 0.5 MG/2 ML NEB NEB SCH ×2 (07:55→20:00)
[2019-09-18] MEDS: VITAMIN D 1000 UNIT TAB PO SCH (09:00)
[2019-09-18] MEDS ORDERED: FLUCONAZOLE 100 MG TAB PO SCH (09:00)
[2019-09-18] MEDS: SPIRONOLACTONE 25 MG TABLET PO SCH ×2 (09:10→21:39)
[2019-09-18] MEDS: FAMOTIDINE 20 MG/2 ML VIAL IV SCH ×2 (09:11→21:42)
[2019-09-18] MEDS: FUROSEMIDE 20 MG/ 2ML VIAL IV SCH ×2 (09:11→21:42)
[2019-09-18] MEDS: NIFEdipine 10 MG CAP PO SCH ×2 (09:11→21:38)
[2019-09-18] MEDS: THIAMINE 200 MG/2 ML INJ IVP SCH ×2 (09:12→21:42)
[2019-09-18] MEDS: ASCORBIC ACID 500 MG TABLET PO SCH ×3 (09:12→21:40)
[2019-09-18] MEDS: FLUCONAZOLE 400 MG IVPB 400 MG/200 ML BAG IV SCH (09:13)
[2019-09-18] MEDS: ZINC SULFATE 220 MG CAP PO SCH (09:13)
[2019-09-18] MEDS: ENOXAPARIN 80 MG/0.8 ML SQ SCH ×2 (09:13→21:40)
[2019-09-18] MEDS: ENOXAPARIN 100 MG/ML SYR SQ SCH ×2 (09:13→21:42)
[2019-09-18] MEDS: CEFEPIME/SWI 1gm 10 ML IVP SCH ×2 (09:13→21:44)
--- NOTE | 2019-09-18 09:15 | RAD REPORT ---
EXAM DESCRIPTION: Chest x-ray one view CLINICAL HISTORY: 8 years Male, PICC placement COMPARISON: September 16, 2019 5:25 AM FINDINGS: Left upper extremity PICC terminates in the mid SVC in good position. There is diffuse chau ateral patchy airspace opacities and prominent interstitial markings slightly improved from prior rené dy. No pneumothorax is identified. Lung volumes are decreased. Cannot exclude small pleural effusions . Left upper terminate PICC in good position. Persistent diffuse interstitial and alveolar opacities throughout the lungs slightly improved from pr ior exam. Electronically signed by: Garrett Seth DO 09/16/2019 9:40 PM CDT Due to temporary technical issues with the PACS/Fluency reporting system, reports are being signed by the in house radiologist without review as a courtesy to ensure prompt reporting. The interpreting r adiologist is fully responsible for the content of the report.
[2019-09-18] MEDS ORDERED: IVERMECTIN 3MG TAB PO ONE ×2 (10:00→15:00)
[2019-09-18] MEDS: ONDANSETRON 4 MG/2 ML VIAL IV PRN (10:35)
--- NOTE | 2019-09-18 11:33 | RAD REPORT ---
EXAM DESCRIPTION: Linda Single View09/18/2019 10:51 am CLINICAL HISTORY: ARDS COMPARISON: September 15 FINDINGS: No significant change in diffuse bilateral pulmonary opacities. Heart remains enlarged. PI CC line in place IMPRESSION: No significant change in the diffuse bilateral pulmonary opacities which may represent A RDS.
[2019-09-18] MEDS ORDERED: METOPROLOL TARTRATE 5 MG/5 ML INJ IV STA (12:02)
--- NOTE | 2019-09-18 12:27 | P.PN ---
Subjective Date of Service: 09/18/19 Primary Care Provider: none Chief Complaint: Respiratory failure due to garcia virus Subjective: Improving (Patient is still on BiPAP, but requirng less FIO2. He appears more comfortable today. Received 1 dose of IV metoprolol for persistent tachycardia.) Physical Examination - Vital Signs Temperature: 98.0 F Blood Pressure: 121/66 Pulse: 130 Respirations: 33 Pulse Ox (%): 88 - Physical Exam General: Cooperative, Mild distress, Obese HEENT: Atraumatic, Normocephalic, EOMI Neck: Supple Respiratory: Diminished Cardiovascular: No edema, Regular rate/rhythm, Normal S1 S2, Other (tachycardic) Gastrointestinal: Normal bowel sounds, Soft and benign, Non-distended Musculoskeletal: No clubbing, No swelling, No contractures, No erythema, No tenderness, No warmth Neurological: Normal affect - Studies Medications List Reviewed: Yes Assessment & Plan - Problems (Diagnosis) (1) Pneumonia due to COVID-19 virus Current Visit: Yes Status: Acute (2) Respiratory failure Current Visit: Yes Status: Acute Qualifiers: Chronicity: acute (3) Sepsis with acute hypoxic respiratory failure Current Visit: Yes Status: Acute Qualifiers: Sepsis type: sepsis due to unspecified organism Severe sepsis shock status: without septic shock Qualified Code(s): A41.9 - Sepsis, unspecified organism; R65.20 - Severe sepsis without septic shock; J96.01 - Acute respiratory failure with hypoxia Physician Review Additional Text: Impression: Patient is a 38-year-old male with morbid obesity currently admitted in the ICU after presented with acute hypoxemic respiratory failure due to COVID-19 pneumonia. He is still requiring high FiO2 while on noninvasive ventilation. Recent CXR showed increased bilateral alveolar opacification suggesting worsening of disease. Patient's respiratory status has improved as evidenced by less FiO2 requirement. Still has unstable vitals but has not decompensated Acute respiratory failure with hypoxia secondary to bilateral COVID 19 pneumonia complicated with suspected underlying obstructive sleep apnea, subcutaneous emphysema and small less than 10% left-sided apical pneumothorax: Sinus tachycardia Hypertension Morbid obesity, BMI 47 GERD Hyperglycemia with evidence of diabetes mellitus type 2 Plan: Acute respiratory failure with hypoxia secondary to bilateral COVID 19 pneumonia complicated with suspected underlying obstructive sleep apnea, subcutaneous emphysema and small less than 10% left-sided apical pneumothorax: Progressively improving Wean down FiO2 while on BiPAP Continue cefepime, doxycycline and Diflucan Continue current medications including IV Solu-Medrol 40 mg twice daily, apixaban, vitamin-B 1 and C, along with zinc. Patient is still critical Continue ICU stay Sinus tachycardia As per EKG Received 1 dose of IV metoprolol Hypertension: Blood pressure stable on Nifedipine. Patient also on Aldactone. Morbid obesity, BMI 47: Continue to address diet. GERD: Patient now on Protonix Hyperglycemia with evidence of diabetes mellitus type 2: A1c 6.4. Will monitor Accu-Cheks and provide sliding scale while on systemic cortical steroids.
[2019-09-18] MEDS: AA 5%/D20W/ELECTROLYTES-TPN 2,000 ML, Lipids 20% 250 ML with MULTIVITAMINS INJ 10 ML IV SCH ×3 (18:11)
[2019-09-18] MEDS: ATORVASTATIN 40 MG TAB PO SCH (21:38)
[2019-09-18] MEDS: MELATONIN 3 MG TABLET PO SCH (21:40)
[2019-09-19] MEDS: METHYLPREDNISOLONE 125 MG INJ IV SCH ×3 (01:00→17:12)
[2019-09-19] MEDS: GUAIFENESIN/CODEINE 5ML UCUP PO PRN (04:11)
[2019-09-19] MEDS: FENTANYL CITR 100 MCG/2 ML IV PRN ×4 (05:15→23:30)
[2019-09-19] MEDS: INSULIN 70/30 100 UNITS/ML SQ SCH ×2 (06:00→17:12)
[2019-09-19] MEDS: INSULIN -REGULAR HUMAN 50 UNIT/0.5 ML ML SQ SCH ×4 (06:00→17:14)
[2019-09-19] MEDS: ENOXAPARIN 100 MG/ML SYR SQ SCH ×2 (08:18→21:00)
[2019-09-19] MEDS: THIAMINE 200 MG/2 ML INJ IVP SCH ×2 (08:18→21:03)
[2019-09-19] MEDS: ENOXAPARIN 80 MG/0.8 ML SQ SCH ×2 (08:18→21:01)
[2019-09-19] MEDS: SPIRONOLACTONE 25 MG TABLET PO SCH ×2 (08:18→21:04)
[2019-09-19] MEDS: FUROSEMIDE 20 MG/ 2ML VIAL IV SCH ×2 (08:19→21:03)
[2019-09-19] MEDS: FAMOTIDINE 20 MG/2 ML VIAL IV SCH ×2 (08:20→21:03)
[2019-09-19] MEDS: FLUCONAZOLE 400 MG IVPB 400 MG/200 ML BAG IV SCH (08:20)
[2019-09-19] MEDS: VITAMIN D 1000 UNIT TAB PO SCH (08:20)
[2019-09-19] MEDS: ZINC SULFATE 220 MG CAP PO SCH (08:20)
[2019-09-19] MEDS: ASCORBIC ACID 500 MG TABLET PO SCH ×3 (08:21→21:03)
[2019-09-19] MEDS: BUDESONIDE 0.5 MG/2 ML NEB NEB SCH ×2 (08:35→19:50)
--- NOTE | 2019-09-19 08:52 | P.PN ---
Subjective Date of Service: 09/26/19 Primary Care Provider: none Chief Complaint: Respiratory failure due to garcia virus No change in patient's condition is still very alert responsive cooperative coherent still requiring approximately 90% FiO2 Physical Examination - Vital Signs Temperature: 97.6 F Blood Pressure: 114/71 Pulse: 107 Respirations: 25 Pulse Ox (%): 92 - Studies Medications List Reviewed: Yes Assessment & Plan - Problems (Diagnosis) (1) Respiratory failure Status: Acute Plan: Respiratory failure from garcia virus no change patient's condition is stable CRP level is less than 10 ferritin level is still increasing continue with steroids increase the dose of insulin cultures all negative white count a decline yesterday recheck his garcia virus Qualifiers: Chronicity: acute
[2019-09-19] MEDS: CEFEPIME/SWI 1gm 10 ML IVP SCH ×2 (09:43→21:05)
[2019-09-19] MEDS: NIFEdipine 10 MG CAP PO SCH ×2 (09:53→21:02)
[2019-09-19 10:39] LABS: ALT/SGPT 189 U/L (12-78); AST/SGOT 35 U/L (15-37); Albumin 2.4 g/dL (3.4-5.0); Alkaline Phosphatase 46 U/L (45-117); BUN Blood Urea Nitrogen 40 mg/dL (7-18); Bicarbonate 36 mmol/L (21-32); Bilirubin Total 0.8 mg/dL (0.2-1.0); Glucose Level 287 mg/dL (74-106); Potassium 4.9 mmol/L (3.5-5.1); Sodium Level 142 mmol/L (136-145)
--- NOTE | 2019-09-19 12:12 | P.PN ---
Subjective Date of Service: 09/19/19 Primary Care Provider: none Chief Complaint: Respiratory failure due to garcia virus Subjective: Other (Slight improvement. Patient NOT decompensating on FiO2 85% via BIPAP. I spoke with patient's brother, Mr Madrid, and gave clinical updates. He is expected to be here for the rest of the week.) Physical Examination - Vital Signs Temperature: 97.6 F Blood Pressure: 110/67 Pulse: 107 Respirations: 25 Pulse Ox (%): 92 - Physical Exam General: Cooperative, Mild distress, Obese, Other (BIPAP machine on) HEENT: Atraumatic, Normocephalic, EOMI Respiratory: Crackles/rales Cardiovascular: No edema, Normal pulses, Regular rate/rhythm, Normal S1 S2 Gastrointestinal: Normal bowel sounds, Soft and benign, Non-distended, Other (obese abdomen) Musculoskeletal: No clubbing, No swelling, No contractures, No erythema, No tenderness, No warmth Neurological: Normal affect - Studies Medications List Reviewed: Yes Assessment & Plan - Problems (Diagnosis) (1) Pneumonia due to COVID-19 virus Current Visit: Yes Status: Acute (2) Respiratory failure Current Visit: Yes Status: Acute Qualifiers: Chronicity: acute (3) Sepsis with acute hypoxic respiratory failure Current Visit: Yes Status: Acute Qualifiers: Sepsis type: sepsis due to unspecified organism Severe sepsis shock status: without septic shock Qualified Code(s): A41.9 - Sepsis, unspecified organism; R65.20 - Severe sepsis without septic shock; J96.01 - Acute respiratory failure with hypoxia Physician Review Additional Text: Impression: Patient is a 38-year-old male with morbid obesity currently admitted in the ICU after presented with acute hypoxemic respiratory failure due to COVID-19 pneumonia. He has been on BIPAP and he is requiring less and less FiO2, currently at 85%. His inflammatory markers are trending down. Acute respiratory failure with hypoxia secondary to bilateral COVID 19 pneumonia complicated with suspected underlying obstructive sleep apnea, subcutaneous emphysema and small less than 10% left-sided apical pneumothorax: Sinus tachycardia Hypertension Morbid obesity, BMI 47 GERD Hyperglycemia with evidence of diabetes mellitus type 2 Plan: Acute respiratory failure with hypoxia secondary to bilateral COVID 19 pneumonia complicated with suspected underlying obstructive sleep apnea, subcutaneous emphysema and small less than 10% left-sided apical pneumothorax: Progressively improving Wean down FiO2 while on BiPAP as tolerated Continue cefepime, doxycycline and Diflucan Continue current medications including IV Solu-Medrol 40 mg twice daily, apixaban, vitamin-B 1 and C, along with zinc. Patient is still critical Continue ICU stay Sinus tachycardia As per EKG Received 1 dose of IV metoprolol Hypertension: Blood pressure stable on Nifedipine. Patient also on Aldactone. Morbid obesity, BMI 47: Continue to address diet. GERD: Patient now on Protonix Hyperglycemia with evidence of diabetes mellitus type 2: A1c 6.4. Will monitor Accu-Cheks and provide sliding scale while on systemic cortical steroids.
[2019-09-19] MEDS: AA 5%/D20W/ELECTROLYTES-TPN 2,000 ML, Lipids 20% 250 ML with MULTIVITAMINS INJ 10 ML IV SCH ×3 (17:18)
[2019-09-19] MEDS: ATORVASTATIN 40 MG TAB PO SCH (21:04)
[2019-09-19] MEDS: MELATONIN 3 MG TABLET PO SCH (21:04)
[2019-09-20] MEDS: METHYLPREDNISOLONE 125 MG INJ IV SCH ×3 (00:05→17:17)
[2019-09-20] MEDS: INSULIN -REGULAR HUMAN 50 UNIT/0.5 ML ML SQ SCH ×5 (00:05→23:50)
[2019-09-20] MEDS: GUAIFENESIN/CODEINE 5ML UCUP PO PRN ×2 (02:37→18:24)
[2019-09-20] MEDS: INSULIN 70/30 100 UNITS/ML SQ SCH ×3 (05:34→18:00)
[2019-09-20] MEDS: BUDESONIDE 0.5 MG/2 ML NEB NEB SCH ×2 (07:50→20:00)
[2019-09-20 08:33] LABS: Absolute Lymphocytes (CBC) 0.5 K/uL (0.7-4.9); Basophils % 0.2 % (0-1.3); Hematocrit 44.1 % (39.6-49.0); Lymphocytes % 2.8 % (15.3-44.8); MPV 10.4 fL (7.6-11.3); RBC Red Blood Cell Count 5.35 M/uL (4.33-5.43)
[2019-09-20 08:44] LABS: BUN Blood Urea Nitrogen 41 mg/dL (7-18); Bicarbonate 34 mmol/L (21-32); Glucose Level 377 mg/dL (74-106); Potassium 4.7 mmol/L (3.5-5.1); Sodium Level 140 mmol/L (136-145)
[2019-09-20] MEDS: FLUCONAZOLE 400 MG IVPB 400 MG/200 ML BAG IV SCH (08:45)
[2019-09-20] MEDS: FUROSEMIDE 20 MG/ 2ML VIAL IV SCH ×2 (08:46→20:00)
[2019-09-20] MEDS: ENOXAPARIN 80 MG/0.8 ML SQ SCH ×2 (08:46→20:01)
[2019-09-20] MEDS: THIAMINE 200 MG/2 ML INJ IVP SCH ×2 (08:46→20:08)
[2019-09-20] MEDS: FAMOTIDINE 20 MG/2 ML VIAL IV SCH ×2 (08:46→20:07)
[2019-09-20] MEDS: CEFEPIME/SWI 1gm 10 ML IVP SCH ×2 (08:47→20:02)
[2019-09-20 08:49] LABS: C-Reactive Protein < 2.90 mg/L (<3.00)
[2019-09-20] MEDS: ENOXAPARIN 100 MG/ML SYR SQ SCH ×2 (08:50→20:01)
[2019-09-20] MEDS: VITAMIN D 1000 UNIT TAB PO SCH (09:00)
[2019-09-20 09:04] LABS: Blood Morphology Comment NOT SEEN (NOT SEEN); Platelet Estimate DECR; Urine White Blood Cell Casts OK
[2019-09-20 10:03] LABS: Protime INR 1.23
[2019-09-20 10:32] LABS: Blood Gas Oxyhemoglobin 85.8 % (94-97); Blood O2 Saturation 87.5 % (92-98.5)
[2019-09-20] MEDS: SPIRONOLACTONE 25 MG TABLET PO SCH ×2 (11:08→20:00)
[2019-09-20] MEDS: ASCORBIC ACID 500 MG TABLET PO SCH ×3 (11:08→20:08)
[2019-09-20] MEDS: ZINC SULFATE 220 MG CAP PO SCH (11:09)
--- NOTE | 2019-09-20 11:12 | P.PN ---
Subjective Date of Service: 09/26/19 Primary Care Provider: none Chief Complaint: Respiratory failure due to garcia virus No change she has oxygen requirements to vary significantly although appears to be general down trend otherwise he is cooperative Physical Examination - Vital Signs Temperature: 97.2 F Blood Pressure: 132/90 Pulse: 121 Respirations: 29 Pulse Ox (%): 90 - Studies Medications List Reviewed: Yes Assessment & Plan - Problems (Diagnosis) (1) Respiratory failure Status: Acute Plan: Respiratory failure condition stable maybe slight improvement CRP levels less than 10 however is ferritin levels have been increasing consistently patient is on high dose Solu-Medrol TPN prophylactic antibiotics anti fungal therapy no change in therapy and need to have better control of his blood sugars insulin increased Qualifiers: Chronicity: acute
[2019-09-20] MEDS: NIFEdipine 10 MG CAP PO SCH ×2 (11:38→20:08)
--- NOTE | 2019-09-20 11:42 | P.PN ---
Subjective Date of Service: 09/20/19 Primary Care Provider: none Chief Complaint: Respiratory failure due to garcia virus Subjective: No new changes (Patient is still on FiO2 80% while on BiPAP. He decompensates easily off BiPAP,or with sitting at the edge of the bed. E ncouarged patient to continue with prone or decub positionion if that's all he can tolerate.) Physical Examination - Vital Signs Temperature: 97.2 F Blood Pressure: 132/90 Pulse: 121 Respirations: 29 Pulse Ox (%): 90 - Physical Exam General: Cooperative, Mild distress, Obese HEENT: Atraumatic, Normocephalic, Other (BIPAP on), EOMI Neck: Supple Respiratory: Diminished, Crackles/rales, Other Cardiovascular: No edema, Normal pulses, Regular rate/rhythm, Normal S1 S2, Other (tachycardic) Gastrointestinal: Normal bowel sounds, Soft and benign, Non-distended, No tenderness, Other (obese) Musculoskeletal: No clubbing, No swelling, No contractures, No erythema, No tenderness, No warmth Integumentary: No rashes, No breakdown, No significant lesion, No tenderness/swelling, No erythema, No warmth, No cyanosis Neurological: Normal affect - Studies Medications List Reviewed: Yes Assessment & Plan - Problems (Diagnosis) (1) Pneumonia due to COVID-19 virus Current Visit: Yes Status: Acute (2) Respiratory failure Current Visit: Yes Status: Acute Qualifiers: Chronicity: acute (3) Sepsis with acute hypoxic respiratory failure Current Visit: Yes Status: Acute Qualifiers: Sepsis type: sepsis due to unspecified organism Severe sepsis shock status: without septic shock Qualified Code(s): A41.9 - Sepsis, unspecified organism; R65.20 - Severe sepsis without septic shock; J96.01 - Acute respiratory failure with hypoxia (4) Thrombocytopenia Current Visit: Yes Status: Acute (5) Morbid obesity with BMI of 45.0-49.9, adult Current Visit: Yes Status: Acute Physician Review Additional Text: Impression: Patient is a 38-year-old male with morbid obesity currently admitted in the ICU after presented with acute hypoxemic respiratory failure due to COVID-19 pneumonia. He has been on BIPAP and he is requiring less and less FiO2, currently at 80%. His inflammatory markers are trending down (normal CRP), low d-dimers. Acute respiratory failure with hypoxia secondary to bilateral COVID 19 pneumonia complicated with suspected underlying obstructive sleep apnea, subcutaneous emphysema and small less than 10% left-sided apical pneumothorax: Sinus tachycardia Hypertension Morbid obesity, BMI 47 GERD Hyperglycemia with evidence of diabetes mellitus type 2 Plan: Acute respiratory failure with hypoxia secondary to bilateral COVID 19 pneumonia complicated with suspected underlying obstructive sleep apnea, subcutaneous emphysema and small less than 10% left-sided apical pneumothorax: Progressively improving Wean down FiO2 while on BiPAP as tolerated Continue cefepime, doxycycline and Diflucan Continue current medications including IV Solu-Medrol 40 mg twice daily, vitamin-B 1 and C, along with zinc. Apixaban held due to thrombocytopenia Patient is still critical Continue ICU stay Thrombocytopenia Drastic drop since admission Will hold off systemic anticoagulation HIT panel pending Sinus tachycardia As per EKG Received 1 dose of IV metoprolol RESOLVED for the most part Hypertension: Blood pressure stable on Nifedipine. Patient also on Aldactone. Morbid obesity, BMI 47: Continue to address diet. GERD: Patient now on Protonix Hyperglycemia with evidence of diabetes mellitus type 2: A1c 6.4. Will monitor Accu-Cheks and provide sliding scale while on systemic cortical steroids.
--- NOTE | 2019-09-20 12:06 | RAD REPORT ---
EXAM DESCRIPTION: RAD - Chest Single View - 09/20/2019 11:45 am CLINICAL HISTORY: Pneumonia Chest pain. COMPARISON: Chest Single View dated 09/18/2019; Chest Single View dated 09/16/2019; Chest Single View da bessie 09/16/2019; Chest Single View dated 09/15/2019 FINDINGS: Portable technique limits examination quality. Since 09/18/2019, mild worsening in right greater than left pulmonary opacities is noted. The heart i s upper limit normal in size. Left-sided PICC line has tip in the SVC. IMPRESSION: Mild worsening in lung aeration since comparative study.
[2019-09-20] MEDS ORDERED: HYDROMORPHONE HCL 1 MG/ML INJ IV ONE (12:49)
--- NOTE | 2019-09-20 14:16 | RAD REPORT ---
EXAM DESCRIPTION: RAD - Abdomen Single View - 09/20/2019 1:46 pm CLINICAL HISTORY: abdominal pain COMPARISON: Abdomen Exam Complete dated 09/04/2019 FINDINGS: Exam has limitation due to patient mobility, portable image acquisition and the presence o f motion. There is significant - is distention of a tortuous and redundant colon. This extends to dis mir sigmoid colon and possibly into the rectum. Prominent, nondilated small bowel loops are present. No free air or pneumatosis confirmed on this study. No suspicious calcifications. IMPRESSION: Gas distention of the colon with multiple nondilated air-filled small bowel loops. Findings favor a prominent ileus rather than bowel obstruction. Follow-up can be obtained as jayashree miramontes
[2019-09-20] MEDS: AA 5%/D20W/ELECTROLYTES-TPN 2,000 ML, Lipids 20% 250 ML with MULTIVITAMINS INJ 10 ML IV SCH ×3 (17:16)
[2019-09-20] MEDS: ATORVASTATIN 40 MG TAB PO SCH (20:01)
[2019-09-20] MEDS: MELATONIN 3 MG TABLET PO SCH (20:07)
[2019-09-20] MEDS ORDERED: LORazepam 2 MG/ML VIAL IV ONE ×2 (22:21→22:23)
[2019-09-20] MEDS ORDERED: HYDROMORPHONE HCL 1 MG/ML INJ IV PRN (23:23)
[2019-09-20] MEDS: HYDROMORPHONE HCL 1 MG/ML INJ IV PRN (23:45)
[2019-09-21] MEDS: METHYLPREDNISOLONE 125 MG INJ IV SCH ×3 (00:57→18:07)
[2019-09-21 05:55] LABS: Absolute Lymphocytes (CBC) 0.3 K/uL (0.7-4.9); Basophils % 0.5 % (0-1.3); Hematocrit 45.1 % (39.6-49.0); Lymphocytes % 1.2 % (15.3-44.8); MPV 11.5 fL (7.6-11.3); RBC Red Blood Cell Count 5.42 M/uL (4.33-5.43)
[2019-09-21 06:18] LABS: Ferritin 1789.9 ng/mL (26-388); Potassium 4.8 mmol/L (3.5-5.1)
[2019-09-21] MEDS: INSULIN 70/30 100 UNITS/ML SQ SCH (06:28)
[2019-09-21] MEDS: INSULIN -REGULAR HUMAN 50 UNIT/0.5 ML ML SQ SCH ×2 (06:28→12:00)
[2019-09-21] MEDS: HYDROMORPHONE HCL 1 MG/ML INJ IV PRN (07:17)
[2019-09-21] MEDS: FLUCONAZOLE 400 MG IVPB 400 MG/200 ML BAG IV SCH (07:55)
[2019-09-21] MEDS: THIAMINE 200 MG/2 ML INJ IVP SCH ×2 (07:56→20:54)
[2019-09-21] MEDS: CEFEPIME/SWI 1gm 10 ML IVP SCH ×2 (07:56→20:53)
[2019-09-21] MEDS: FAMOTIDINE 20 MG/2 ML VIAL IV SCH ×2 (07:56→20:53)
[2019-09-21] MEDS: ENOXAPARIN 80 MG/0.8 ML SQ SCH ×3 (08:00→20:53)
[2019-09-21] MEDS: BUDESONIDE 0.5 MG/2 ML NEB NEB SCH ×2 (08:00→22:00)
[2019-09-21] MEDS: ENOXAPARIN 100 MG/ML SYR SQ SCH ×3 (08:00→20:53)
--- NOTE | 2019-09-21 08:12 | RAD REPORT ---
EXAM DESCRIPTION: RAD - Chest Single View - 09/21/2019 6:28 am CLINICAL HISTORY: Pneumonia COMPARISON: Portable September 19 TECHNIQUE: AP portable chest image was obtained 09/21/2019 6:28 am . FINDINGS: Since prior imaging a 20-25% right pneumothorax has developed and extends from the apex to the base. No left-sided pneumothorax. Trachea remains in the midline. Patient continues to have extensive bilateral airspace opacification worse on the right. Heart and vasculature are normal. No measurable pleural effusion and no pneumothorax. No acute bony a bnormality seen. No acute aortic findings suspected. Findings telephoned to the ICU 8:07 a.m.. IMPRESSION: Approximately 20-25% right pneumothorax has developed. No change to the bilateral airspace opacification, worse in the right base.
[2019-09-21] MEDS ORDERED: INSULIN -REGULAR HUMAN 50 UNIT/0.5 ML ML IV SCH (08:15)
[2019-09-21] MEDS ORDERED: LIDOCAINE 1% 20 ML MDV ONE (08:26)
[2019-09-21 08:32] LABS: Blood Morphology Comment NOT SEEN (NOT SEEN); Platelet Estimate DECR
[2019-09-21] MEDS ORDERED: propofoL 1,000 MG/100 ML VIAL IV ONE (08:44)
[2019-09-21] MEDS ORDERED: RSI MEDICATION KIT IV ONE (08:45)
[2019-09-21] MEDS ORDERED: NA CHLORIDE 0.9% 1,000 ML ONE (08:46)
[2019-09-21] MEDS: SPIRONOLACTONE 25 MG TABLET PO SCH (09:00)
[2019-09-21] MEDS: ZINC SULFATE 220 MG CAP PO SCH (09:00)
[2019-09-21] MEDS: ASCORBIC ACID 500 MG TABLET PO SCH ×3 (09:00→20:48)
[2019-09-21] MEDS: VITAMIN D 1000 UNIT TAB PO SCH (09:00)
[2019-09-21] MEDS: NIFEdipine 10 MG CAP PO SCH ×2 (09:00→20:48)
[2019-09-21] MEDS: FUROSEMIDE 20 MG/ 2ML VIAL IV SCH (09:00)
[2019-09-21] MEDS ORDERED: MIDAZOLAM HCL 2 MG/2 ML INJ IV PRN (09:05)
[2019-09-21] MEDS ORDERED: propofoL 1,000 MG/100 ML VIAL IV PRN (09:05)
[2019-09-21] MEDS ORDERED: HALOPERIDOL LACT 5 MG/ML INJ IV PRN (09:05)
[2019-09-21] MEDS ORDERED: NA CHLORIDE 0.9% 250 ML IV PRN (09:05)
[2019-09-21] MEDS ORDERED: GLYCOPYRROLATE 0.2 MG/ML SYR ONE (09:29)
[2019-09-21] MEDS ORDERED: KETAMINE HCL 500 MG/5 ML VIAL ONE (09:29)
[2019-09-21] MEDS ORDERED: SUCCINYLCHOLINE 20 MG/ML (10 ML) IV ONE (09:31)
[2019-09-21] MEDS ORDERED: LABETALOL 20 MG/4ML SYRINGE IV ONE (10:17)
[2019-09-21] MEDS ORDERED: FENTANYL 50 MCG/PATCH TD SCH (10:49)
--- NOTE | 2019-09-21 10:56 | RAD REPORT ---
EXAM DESCRIPTION: RAD - Chest Single View - 09/21/2019 10:41 am CLINICAL HISTORY: chest tube placement, pneumothorax COMPARISON: Portable September 20 TECHNIQUE: AP portable chest image was obtained 09/21/2019 10:41 am . FINDINGS: Chest tube has been inserted on the right side with the tip in the medial right base. Pneu mothorax has resolved or nearly fully resolved. There may be a very small pneumothorax at the apex. T his region is limited. Lateral right base is obscured from the film. Minimal subcutaneous emphysema i n the lateral right chest. No change the extensive airspace disease. IMPRESSION: Right-sided chest tube has been placed. Tip is in the medial right base. Right-sided pneumothorax has resolved or nearly fully resolved.
--- NOTE | 2019-09-21 11:21 | P.PN ---
Subjective Date of Service: 09/26/19 Primary Care Provider: none Chief Complaint: Respiratory failure due to garcia virus Patient developed pneumothorax on the right side today with subsequent decrease in his oxygen had to be emergently intubated a very difficult intubation by anesthesia in addition a chest tube was placed by Dr. Engel he is currently hypoxic on a ventilator maximum ventilatory support Physical Examination - Vital Signs Temperature: 97.8 F Blood Pressure: 146/93 Pulse: 131 Respirations: 30 Pulse Ox (%): 89 - Physical Exam General: Unresponsive Respiratory: Clear to auscultation bilaterally Cardiovascular: No edema, Regular rate/rhythm - Studies Medications List Reviewed: Yes Assessment & Plan - Problems (Diagnosis) (1) Respiratory failure Status: Acute Plan: Respiratory failure patient had to be intubated a chest tube was also been placed start patient on IV insulin although his CRP level is less than 10 is ferritin levels have progressively increased renal function worse Dc spironolactone he has leg issues distension office GI tract probably from the excessive pressures will insert an NG tube start tube feeds him wean him off TPN beginning tomorrow his chest tube is in place chest x-ray shows complete expansion currently on a FiO2 of 100% assist-control 2D echo with Doppler refuse got severe pulmonary hypertension consider tPA will also try a inhaled Flolan reason all echocardiogram available for at least a week I discuss with cardiology is not a candidate for DT angio is to was stable do some Dopplers of his lower extremities Qualifiers: Chronicity: acute
[2019-09-21] MEDS: FENTANYL CITR 100 MCG/2 ML IV PRN ×2 (11:32→15:45)
--- NOTE | 2019-09-21 11:41 | P.PN ---
Subjective Date of Service: 09/21/19 Primary Care Provider: none Chief Complaint: Respiratory failure due to garcia virus Subjective: Worsening (Patient required 100% of FiO2 via BIPAP. CXR showed pneumothorax, s/p chest tube placement 09/20. Anesthesia also intubated.) Physical Examination - Vital Signs Temperature: 97.8 F Blood Pressure: 146/93 Pulse: 131 Respirations: 30 Pulse Ox (%): 89 - Physical Exam General: Cooperative, Severe distress, Obese HEENT: Atraumatic, Normocephalic, EOMI Neck: Supple Respiratory: Diminished, Crackles/rales Cardiovascular: No edema, Normal pulses, Regular rate/rhythm, Normal S1 S2 Gastrointestinal: Normal bowel sounds, Soft and benign, Non-distended, No tenderness, Other (obese) Musculoskeletal: No clubbing, No swelling, No contractures, No erythema, No tenderness, No warmth Integumentary: No rashes, No breakdown, No significant lesion, No tender ness/swelling, No erythema, No warmth, No cyanosis - Studies Medications List Reviewed: Yes Assessment & Plan - Problems (Diagnosis) (1) Pneumonia due to COVID-19 virus Current Visit: Yes Status: Acute (2) Respiratory failure Current Visit: Yes Status: Acute Qualifiers: Chronicity: acute (3) Sepsis with acute hypoxic respiratory failure Current Visit: Yes Status: Acute Qualifiers: Sepsis type: sepsis due to unspecified organism Severe sepsis shock status: without septic shock Qualified Code(s): A41.9 - Sepsis, unspecified organism; R65.20 - Severe sepsis without septic shock; J96.01 - Acute respiratory failure with hypoxia (4) Thrombocytopenia Current Visit: Yes Status: Acute (5) Morbid obesity with BMI of 45.0-49.9, adult Current Visit: Yes Status: Acute Physician Review Additional Text: Impression: Patient is a 38-year-old male with morbid obesity currently admitted in the ICU after presented with acute hypoxemic respiratory failure due to COVID-19 pneumonia. He has been stable on BIPAP until 09/20 when he developed another pneumothorax, large this time. Chest tube placed by Surgery. Anesthesia intubated the patient. Patient has been hospitalized for almost 3 weeks. He received convalescent plasma and remdesivir. Apixaban held on 09/19 due to thrombocytopenia Acute respiratory failure with hypoxia secondary to bilateral COVID 19 pneumonia complicated with suspected underlying obstructive sleep apnea, subcutaneous emphysema and small less than 10% left-sided apical pneumothorax: Sinus tachycardia Hypertension Morbid obesity, BMI 47 GERD Hyperglycemia with evidence of diabetes mellitus type 2 Plan: Acute respiratory failure with hypoxia secondary to bilateral COVID 19 pneumonia complicated with suspected underlying obstructive sleep apnea, subcutaneous emphysema and small less than 10% left-sided apical pneumothorax: S/P ETT Post intubation pending Appreciate assistance from Pulmonary, Anesthesia and Surgery Continue cefepime, doxycycline and Diflucan Continue current medications including IV Solu-Medrol 40 mg twice daily, vitamin-B 1 and C, along with zinc. Patient is still critical Continue ICU stay Thrombocytopenia Drastic drop since admission Continue holding systemic anticoagulation Follow up HIT panel Sinus tachycardia As per EKG Received 1 dose of IV metoprolol RESOLVED for the most part Hypertension: Blood pressure stable on Nifedipine. Patient also on Aldactone. Morbid obesity, BMI 47: Continue to address diet. GERD: Patient now on Protonix Hyperglycemia with evidence of diabetes mellitus type 2: A1c 6.4. Will monitor Accu-Cheks and provide sliding scale while on systemic cortical steroids.
[2019-09-21] MEDS ORDERED: INSULIN -REGULAR HUMAN 100 UNIT in NA CHLORIDE 0.9% 100 ML IV SCH (12:00)
[2019-09-21] MEDS: CISATRACURIUM INJECTION 2 MG/ML (10 ML Vial) IV PRN ×2 (12:01→15:07)
[2019-09-21 12:27] LABS: Arterial Blood Carboxyhemoglob 0.8 % (0-1.5); Blood Gas Oxyhemoglobin 79.5 % (94-97); Blood O2 Saturation 80.9 % (92-98.5)
[2019-09-21] MEDS: LORazepam 2 MG/ML VIAL IV PRN (12:58)
--- NOTE | 2019-09-21 13:18 | RAD REPORT ---
EXAM DESCRIPTION: US - Extrem Venous W Compress Reynold - 09/21/2019 12:58 pm CLINICAL HISTORY: Rule out DVTleg pain and swelling COMPARISON: None. TECHNIQUE: Real-time sonographic evaluation of the bilateral lower extremity common femoral, superfi cial femoral, popliteal and posterior tibial veins was performed. FINDINGS: Normal compressibility, flow augmentation, phasic flow and spontaneous flow are identified in the left and right lower extremity common femoral, superficial femoral, popliteal and posterior t ibial veins. No intraluminal filling defects seen. IMPRESSION: No DVT in either lower extremity.
[2019-09-21] MEDS ORDERED: LABETALOL 20 MG/4ML SYRINGE IV PRN (13:28)
--- NOTE | 2019-09-21 13:33 | CON ---
Reason For Consultation: The patient needs urgent chest tube. History Of Present Illness: The patient is a 38-year-old gentleman, who was brought in with shortnes s of breath, COVID positive in September 01. He has been on CPAP, progressively has gotten worse and ne eds to be intubated. A couple of days ago he had a small pneumothorax 10% or less but, which resolve d on the next x-ray, however, today he has 25%. He needs to be intubated and I was consulted to place a chest tube. Informed consent was obtained fr om the patient. He is awake and alert on my evaluation, but he was in respiratory distress on BiPAP. Review of Systems: Otherwise unremarkable. Past Medical History: Morbid obesity and hypertension. Past Surgical History: Knee surgery. Allergies: NO ALLERGIES. Social History: The patient does not smoke, does not drink. Family History: Noncontributory. Physical Examination: Vital Signs: This morning heart rate is 131, pulse , blood pressure 146/93, he was saturat ing in the 80s and he was on 100% oxygen. Head and Neck: No masses. Chest: Diminished breath sounds on the right side. Heart: S1, S2. Tachycardic. Abdomen: Distended. Hypoactive bowel sounds. Extremities: Adequately perfused. Nontender. Neuro: Nonfocal. Laboratory Data: White count is 26.1 with a left shift. INR is 1.23. Blood gas reviewed. Chemistr y reviewed. Chest x-ray shows a right-sided pneumothorax 20% to 25%. Assessment: Pneumothorax. Plan: Stat chest tube placement as soon as patient is intubated and sedated. Informed consent was o btained from the patient. He understood risks, benefits, alternatives, and agrees to procedure. Procedure Note: After patient was intubated. The patient was prepped and draped in usual sterile fa shion. Lidocaine 1% infiltrated locally. Then, in the mid axillary line a little anterior at the th ird intercostal space above the level of the nipple, a 2 cm incision was made. However, the depths o f his subcutaneous fat muscle were very deep and had to make the incision a little bit longer, and th en sharp and blunt dissection utilized until I finally found the intercostal spaces. Blunt dissectio n was used to enter the pleural cavity. Air was evacuated and then a 36-[place] chest tube was placed and secured with #1 Vicryl and the wound was closed with #1 Vicryl as well attached to a Pleur-evac and sterile occlusive dressing was applied. The patient tolerated that part of the procedure in stab le condition. Chest x-ray has been ordered. IRON/LB Voice ID: [id number] Report ID: [id number]
[2019-09-21] MEDS: AA 5%/D20W/ELECTROLYTES-TPN 2,000 ML, Lipids 20% 250 ML with MULTIVITAMINS INJ 10 ML IV SCH ×3 (17:00)
[2019-09-21] MEDS ORDERED: NOREPINEPHRINE 4mg/D5W 250mL 4 MG/250 ML BAG IV ONE (17:29)
[2019-09-21] MEDS ORDERED: DIGOXIN 0.25 MG/ML AMP IV ONE (17:59)
[2019-09-21] MEDS ORDERED: ALBUMIN HUMAN 25% 100 ML IV ONE (18:10)
[2019-09-21] MEDS: MIDAZOLAM HCL 2 MG/2 ML INJ IV PRN ×2 (18:13→19:43)
[2019-09-21] MEDS: NOREPINEPHRINE 4 MG in D5W 250 ML IV PRN ×2 (18:14→19:35)
[2019-09-21 18:56] LABS: Arterial Blood Carboxyhemoglob 0.8 % (0-1.5); Blood Gas Oxyhemoglobin 50.2 % (94-97); Blood O2 Saturation 51.1 % (92-98.5)
[2019-09-21] MEDS ORDERED: NA CHLORIDE 0.9% 500 ML ONE ×2 (19:00→21:32)
[2019-09-21] MEDS ORDERED: NA CHLORIDE 0.9% 100 ML ONE (20:05)
[2019-09-21] MEDS ORDERED: CISATRACURIUM INJECTION 2 MG/ML (10 ML Vial) IV ONE (20:06)
[2019-09-21] MEDS: ATORVASTATIN 40 MG TAB PO SCH (20:45)
[2019-09-21] MEDS: MELATONIN 3 MG TABLET PO SCH (20:47)
[2019-09-21] MEDS: LORazepam 2 MG/ML VIAL IV SCH (20:52)
[2019-09-21] MEDS ORDERED: VANCOMYCIN IVPB ONE (21:00)
[2019-09-21] MEDS ORDERED: NS IVPB ONE (21:00)
[2019-09-21] MEDS ORDERED: NA CHLORIDE 0.9% 250 ML ONE (21:22)
[2019-09-21] MEDS ORDERED: VANCOMYCIN 1 GM/VIAL ONE ×2 (21:22→21:31)
[2019-09-21 21:49] LABS: Hematocrit 41.6 % (39.6-49.0)
[2019-09-22] MEDS ORDERED: NA CHLORIDE 0.9% 100 ML ONE ×2 (00:06→02:24)
[2019-09-22] MEDS ORDERED: CISATRACURIUM INJECTION 2 MG/ML (10 ML Vial) IV ONE ×2 (00:07→06:24)
[2019-09-22] MEDS ORDERED: ALBUMIN HUMAN 25% 100 ML IV ONE (00:52)
[2019-09-22] MEDS: METHYLPREDNISOLONE 125 MG INJ IV SCH ×2 (01:04→12:37)
[2019-09-22] MEDS ORDERED: ALBUMIN HUMAN 25% 50 ML IV ONE ×2 (01:10→01:16)
[2019-09-22] MEDS: NOREPINEPHRINE 4 MG in D5W 250 ML IV PRN ×2 (02:00→05:00)
[2019-09-22] MEDS ORDERED: NA CHLORIDE 0.9% 250 ML ONE (02:06)
[2019-09-22] MEDS ORDERED: VASOPRESSIN 20 UNIT/ML VIAL ONE ×2 (02:07→02:13)
[2019-09-22] MEDS: VASOPRESSIN 80 UNIT in NA CHLORIDE 0.9% 250 ML IV PRN ×2 (02:17→09:17)
[2019-09-22] MEDS ORDERED: INSULIN -REGULAR HUMAN 50 UNIT/0.5 ML ML ONE (02:27)
[2019-09-22] MEDS: LORazepam 2 MG/ML VIAL IV SCH ×2 (03:00→09:00)
[2019-09-22] MEDS: LORazepam 2 MG/ML VIAL IV PRN (03:26)
[2019-09-22] MEDS ORDERED: NOREPINEPHRINE 4mg/D5W 250mL 4 MG/250 ML BAG IV ONE (04:26)
[2019-09-22 04:36] LABS: Arterial Blood Carboxyhemoglob 1.1 % (0-1.5); Blood Gas Oxyhemoglobin 82.5 % (94-97); Blood O2 Saturation 84.2 % (92-98.5)
[2019-09-22 06:00] LABS: Absolute Lymphocytes (CBC) 0.8 K/uL (0.7-4.9); Basophils % 0.1 % (0-1.3); Hematocrit 36.6 % (39.6-49.0); Lymphocytes % 2.2 % (15.3-44.8); RBC Red Blood Cell Count 4.28 M/uL (4.33-5.43)
[2019-09-22] MEDS: MIDAZOLAM HCL 2 MG/2 ML INJ IV PRN (06:09)
[2019-09-22] MEDS ORDERED: NA CHLORIDE 0.9% 50 ML ONE (06:24)
[2019-09-22] MEDS ORDERED: NOREPINEPHRINE 4 MG/4 ML VIAL ONE (06:31)
[2019-09-22] MEDS ORDERED: D5W 250 ML IV ONE (06:32)
[2019-09-22 06:58] LABS: Blood Morphology Comment NOT SEEN (NOT SEEN); Platelet Estimate DECR
[2019-09-22] MEDS: CISATRACURIUM BESYLATE 40 MG in NA CHLORIDE 0.9% 80 ML IV PRN ×2 (07:17→09:17)
[2019-09-22] MEDS ORDERED: Meropenem 1000 MG/VIAL IV ONE (07:30)
--- NOTE | 2019-09-22 07:51 | EKG ---
Test Date: 2019-09-20 Test Time: 23:04:00 Hat Cutter: RT-O MEASUREMENT RESULTS: Intervals: Rate: 143 [place]: 116 QRSD: 112 QT: 290 QTc: 447 [place]: P: 72 [place]: 116 QRS: 67 T: -12 INTERPRETIVE STATEMENTS: Sinus tachycardia Incomplete right bundle branch block Nonspecific ST abnormality Abnormal QRS-T angle, consider primary T wave abnormality Abnormal ECG Compared to ECG 09/19/2019 22:38:49 Incomplete right bundle-branch block now present ST (T wave) deviation now present T-wave abnormality still present Electronically Signed On 09-22-19 07:49:12 CDT by Paxton Garcia
--- NOTE | 2019-09-22 07:52 | EKG ---
Test Date: 2019-09-19 Test Time: 22:37:36 Meter/Relay Technician: RT [place] MEASUREMENT RESULTS: Intervals: Rate: 133 [place]: 126 QRSD: 120 QT: 296 QTc: 440 [place]: P: -16 [place]: 126 QRS: 60 T: -14 INTERPRETIVE STATEMENTS: Sinus tachycardia Nonspecific intraventricular conduction delay Abnormal QRS-T angle, consider primary T wave abnormality Abnormal ECG Compared to ECG 09/18/2019 11:27:32 Intraventricular conduction delay now present Possible ischemia no longer present T-wave abnormality still present Electronically Signed On 09-22-19 07:49:52 CDT by Paxton Garcia
--- NOTE | 2019-09-22 07:52 | EKG ---
Test Date: 2019-09-19 Test Time: 22:38:49 Surveillance System Monitor: RT [place] MEASUREMENT RESULTS: Intervals: Rate: 133 [place]: 126 QRSD: 126 QT: 310 QTc: 461 [place]: P: -16 [place]: 126 QRS: 63 T: -13 INTERPRETIVE STATEMENTS: Sinus tachycardia Nonspecific intraventricular block Abnormal QRS-T angle, consider primary T wave abnormality Abnormal ECG Compared to ECG 09/19/2019 22:37:36 Intraventricular conduction delay no longer present T-wave abnormality still present Electronically Signed On 09-22-19 07:49:51 CDT by Paxton Garcia
[2019-09-22] MEDS ORDERED: Meropenem 1,000 MG in NA CHLORIDE 0.9% 100 ML IV ONE (08:00)
[2019-09-22] MEDS: BUDESONIDE 0.5 MG/2 ML NEB NEB SCH (08:10)
[2019-09-22] MEDS: NOREPINEPHRINE 8 MG in D5W 250 ML IV PRN ×2 (08:20→11:49)
--- NOTE | 2019-09-22 08:21 | RAD REPORT ---
EXAM DESCRIPTION: RAD - Chest Single View - 09/22/2019 7:48 am CLINICAL HISTORY: Status post chest tube Chest pain. COMPARISON: Chest Single View dated 09/21/2019; Chest Single View dated 09/21/2019; Chest Single View da bessie 09/20/2019; Chest Single View dated 09/18/2019 FINDINGS: The examination is very limited with only the right lung visualized. Right-sided chest tub e is in place inferiorly. No measurable pneumothorax evident along the right.
[2019-09-22] MEDS: VANCOMYCIN 2 GM in NA CHLORIDE 0.9% 500 ML IVPB SCH ×2 (09:00→09:18)
[2019-09-22] MEDS: ASCORBIC ACID 500 MG TABLET PO SCH (09:00)
[2019-09-22] MEDS ORDERED: VANCOMYCIN 2 GM in NA CHLORIDE 0.9% 500 ML IVPB SCH (09:00)
[2019-09-22] MEDS ORDERED: MICAFUNGIN SODIUM 100 MG in NA CHLORIDE 0.9% 100 ML IV SCH (09:00)
[2019-09-22] MEDS: ZINC SULFATE 220 MG CAP PO SCH (09:00)
[2019-09-22] MEDS: VITAMIN D 1000 UNIT TAB PO SCH (09:00)
[2019-09-22] MEDS ORDERED: NA CHLORIDE 0.9% 1,000 ML ONE (09:38)
--- NOTE | 2019-09-22 11:31 | P.PN ---
Subjective Date of Service: 09/26/19 Primary Care Provider: none Chief Complaint: Respiratory failure due to garcia virus, shock Patient has developed refractory shock anti factor respiratory failure he is on maximum supportive therapy with vasopressors and the ventilatory support maximum broad-spectrum coverage has some bleeding from his chest tube insertion site Physical Examination - Vital Signs Temperature: 98.2 F Blood Pressure: 83/60 Pulse: 127 Respirations: 16 Pulse Ox (%): 61 - Studies Medications List Reviewed: Yes Assessment & Plan - Problems (Diagnosis) (1) Respiratory failure Status: Acute Plan: Patient has refractory respiratory failure and in refractory shock despite maximum doses of vasopressors and ventilatory support chemistries are still pending is endotracheal tube was changing to cuff leak patient is currently on vancomycin meropenem micafungin his white count is significantly elevated blood sugars are better controlled TPN to be stopped yesterday insulin drip was also stopped his non become thrombocytopenic family members allowed to visit him now in he is unlikely to survive Qualifiers: Chronicity: acute
--- NOTE | 2019-09-22 11:55 | RAD REPORT ---
EXAM DESCRIPTION: RAD - Chest Single View - 09/22/2019 11:34 am CLINICAL HISTORY: E-tube placement Chest pain. COMPARISON: Chest Single View dated 09/22/2019; Chest Single View dated 09/21/2019; Chest Single View da bessie 09/21/2019; Chest Single View dated 09/20/2019 FINDINGS: Portable technique limits examination quality. Tip of the ET tube is above the sam. Enteric tube descends into the upper abdomen although its tip is not included on the projection. Moderate bilateral pulmonary opacities are seen, unchanged. Parti ally visualized right-sided chest tube with no evidence of a measurable pneumothorax.
[2019-09-22] MEDS ORDERED: NA CHLORIDE 0.9% 1,000 ML IV ONE (12:35)
[2019-09-22 12:37] LABS: BUN Blood Urea Nitrogen 91 mg/dL (7-18); Bicarbonate 32 mmol/L (21-32); Glucose Level 135 mg/dL (74-106); Sodium Level 146 mmol/L (136-145)
[2019-09-22] MEDS: THIAMINE 200 MG/2 ML INJ IVP SCH (12:37)
[2019-09-22] MEDS: FAMOTIDINE 20 MG/2 ML VIAL IV SCH (12:37)
[2019-09-22 12:39] LABS: Albumin 2.8 g/dL (3.4-5.0); Alkaline Phosphatase 46 U/L (45-117); Bilirubin Total 1.4 mg/dL (0.2-1.0); Protein, Total 5.4 g/dL (6.4-8.2)
[2019-09-22 13:05] LABS: ALT/SGPT 3792 U/L (12-78); AST/SGOT 2854 U/L (15-37); Potassium 6.3 mmol/L (3.5-5.1)
--- NOTE | 2019-09-22 14:21 | P.DS ---
Admission Date: 09/02/19 Discharge Date: 09/22/19 Primary Care Provider: none Discharge Condition: Reason for Admission: Respiratory failure due to garcia virus, shock - Problems (1) Pneumonia due to COVID-19 virus Current Visit: Yes Status: Acute (2) Respiratory failure Current Visit: Yes Status: Acute Qualifiers: Chronicity: acute (3) Sepsis with acute hypoxic respiratory failure Current Visit: Yes Status: Acute Qualifiers: Sepsis type: sepsis due to unspecified organism Severe sepsis shock status: without septic shock Qualified Code(s): A41.9 - Sepsis, unspecified organism; R65.20 - Severe sepsis without septic shock; J96.01 - Acute respiratory failure with hypoxia (4) Thrombocytopenia Current Visit: Yes Status: Acute (5) Morbid obesity with BMI of 45.0-49.9, adult Current Visit: Yes Status: Acute Hospital Course: Mr Whitman is a 38 year old male with morbid obesity who was admitted with acute hypoxemic respiratory failure due to COVID 19 pneumonia. Today is HD#20. He was BIPAP depedent at least a week without much improvement despite coronavirus convalescent plasma and Remdesivir. He suffered 2 pneumothoraces. A small one initially that seemed resolved on subsequent chest radiograph, and a large one captured on 09/21/2019. He was intubated on 09/20 due to respiraroty decompensation. Surgery placed a chest tube on the same day. He required maximum vasopressors and blood transfusion as he rapidly became hypotensive and tachycardic post intubation. Chest tube was notable with bloody output. Rodger barfield was called and underwent went CPR as per ATLS protocol. Time of 13:20 Vital Signs/Physical Exam: Temp Pulse Resp BP Pulse Ox 98.0 F 0 L 32 H 46/26 L 0 L 09/22/19 12:00 09/22/19 13:15 09/22/19 13:00 09/22/19 12:45 09/22/19 13:15 General: Obese, Other (motionless) HEENT: Other (endotracheal tube) Respiratory: Other (no breath sounds) Cardiovascular: Other (chest tube, pulseles) Laboratory Data at Discharge: WBC 37.2 K/uL (4.3-10.9) H* D 09/22/19 04:40 Hgb 11.5 g/dL (13.6-17.9) L 09/22/19 04:40 Hct Cancelled 09/22/19 05:00 Plt Count 39 K/uL (152-406) L* D 09/22/19 04:40 PT 14.4 SECONDS (9.5-12.5) H 09/20/19 08:00 INR 1.23 09/20/19 08:00 APTT 30.8 SECONDS (24.3-36.9) 09/20/19 08:00 Sodium 146 mmol/L (136-145) H 09/22/19 04:40 Potassium 6.3 mmol/L (3.5-5.1) H* 09/22/19 04:40 BUN 91 mg/dL (7-18) H D 09/22/19 04:40 Creatinine 4.64 mg/dL (0.55-1.3) H D 09/22/19 04:40 Glucose 135 mg/dL (74-106) H 09/22/19 04:40 Phosphorus 3.3 mg/dL (2.5-4.9) 09/10/19 05:40 Magnesium 2.5 mg/dL (1.8-2.4) H 09/10/19 05:40 Total Bilirubin 1.4 mg/dL (0.2-1.0) H 09/22/19 04:40 AST 2854 U/L (15-37) H* D 09/22/19 04:40 ALT 3792 U/L (12-78) H* D 09/22/19 04:40 Alkaline Phosphatase 46 U/L (45-117) 09/22/19 04:40 Troponin I 0.02 ng/mL (0.0-0.045) 09/03/19 12:50 Amylase 51 U/L (25-115) 09/02/19 11:57 Lipase 184 U/L (73-393) 09/02/19 11:57 Home Medications: Hydralazine HCl [Apresoline] 100 mg PO BID 09/02/19 Losartan Potassium [Cozaar] 100 mg PO DAILY 09/02/19 Metoprolol Tartrate [Lopressor*] 100 mg PO DAILY 09/02/19
[2019-09-22 15:27] VITALS: O2SAT 65
[2019-09-22 16:27] LABS: C-Reactive Protein 4.53 mg/L (<3.00)
[2019-09-22] MEDS ORDERED: Meropenem 500 MG in NA CHLORIDE 0.9% 100 ML IV SCH (17:00)
[2019-09-22] MEDS ORDERED: Meropenem 500 MG VIAL IV SCH (17:00)
--- NOTE | 2019-09-22 17:10 | CON ---
Date of Consultation: 09/22/2019 Additional Consulting Physician: Dr. Harris. Reason For Consultation: Elevated BUN, creatinine. Fluid management. History Of Present Illness: All the information has been obtained from the chart and from the samia y bedside as the patient is intubated. This is an unfortunate 38-year-old gentleman with significant past medical history of hypertension. The patient was admitted back on the to the hospital wit h COVID pneumonia. The patient all along has kidney function being stable. Apparently, the patient had pneumothorax, had a chest tube. The patient over the last 48 hours started declining aggressivel y and started developing severe thrombocytopenia and DIC picture. The patient started to have low bl ood pressure down to the 70 max on 3 pressors. Creatinine gradually started trending up, yesterday 1 .5 and started being anuric. For that reason, we have been consulted. Reviewing the record for the patient, the ultrasound upon admission showing left hydronephrosis. The patient had hypercapnic respiratory acidosis also. As medication mina, there is no contrast. patient was on vancomycin. This patient's last dose of spironolactone back on the 09 of September. Past Medical History: Include hypertension. Allergies: NO KNOWN DRUGS ALLERGY. Past Surgical History: Knee surgery. Family History: Negative. Social History: Denies smoking. Denies drinking. Denies drugs abuse. Review of Systems: None obtainable. Physical Examination: Vital Signs: When I saw the patient, the patient on vent, blood pressure 92/40, pulse tachy 110. Chest: Crackles bilateral. Heart: S1, S2. Systolic murmur. Abdomen: Soft, distended. Extremities: Plus edema. Neuro: Sedated. Laboratory Data: Sodium 141, potassium 4.8, bicarb 33, BUN 65, creatinine 1.5, GFR of 50, ferritin 1 789. WBC 37.2, H and H 11.5/36.6, platelets 39. Urinalysis; back on the was negative for infec tion. ABG; pH 7.17, CO2 87, O2 54. Current Medications: Include: 1.Meropenem. 2.Micafungin. 3.Vancomycin. 4.Levophed. 5.Atorvastatin. 6.Digoxin. 7.Phenylephrine. 8.Solu-Medrol. 9.Vasopressin. Assessment And Plan: 1.Acute kidney injury, multifactorial secondary to rhabdomyolysis, questionable obstruction, poor pe rfusion, acute tubular necrosis, and toxic acute tubular necrosis, anuric. The patient is on a 3 pre ssor. The patient will not be able to do any renal replacement therapy. Right now we need to stabil ize the blood pressure before we proceed. The patient is too unstable to be transferred for any CRRT . I had long discussion with the patient's family, the by bedside about the condition that we n eed to stabilize his blood pressure before we attempting any other form of renal replacement therapy. Family understands. 2.Septic shock secondary to pneumonia/hypovolemic shock. We will bolus the patient with 1 L of norm al saline. Again, we will continue transfusion and we will continue supportive measures. 3.Hypercapnic respiratory failure as by Pulmonary. 4.Respiratory failure, multi organ failure secondary to pneumonia as by Pulmonary. 5.Rhabdomyolysis. Continue hydration. The patient overall has poor prognosis. Family is tanna quinteros. SHANELLE/LB Voice ID: [id number] Report ID: [id number]
[2019-09-22 17:50] LABS: Ferritin > 40000.0 ng/mL (26-388)
[2019-09-22] MEDS ORDERED: ROCURONIUM 50 MG/5 ML VIAL IV ONE (17:59)
[2019-09-22] MEDS ORDERED: EPINEPHrine 1 MG/10 ML SYR IV ONE (17:59)
[2019-09-26 13:37] VITALS: BP 164/93; TEMP 99.4
== END 2019-09-22 18:00 | disposition expired | DRG 871 ==
LOC: ER 11:25 → ERHOLD 14:52 → 3RD-ICU 22:00
PROVIDERS: ADMIT Family Medicine; ATTEND Internal Medicine
PROC: 3E03329 Introduction of Other Anti-infective into Peripheral Vein, Percutaneous Approach (ICD-10-PCS; 2019-09-02)
PROC: 30233K1 Transfusion of Nonautologous Frozen Plasma into Peripheral Vein, Percutaneous Approach (ICD-10-PCS; principal; 2019-09-04)
PROC: 02HV33Z Insertion of Infusion Device into Superior Vena Cava, Percutaneous Approach (ICD-10-PCS; 2019-09-16)
PROC: 0W9930Z Drainage of Right Pleural Cavity with Drainage Device, Percutaneous Approach (ICD-10-PCS; 2019-09-21)
PROC: 5A1945Z Respiratory Ventilation, 24-96 Consecutive Hours (ICD-10-PCS; 2019-09-21)
PROC: 0BH17EZ Insertion of Endotracheal Airway into Trachea, Via Natural or Artificial Opening (ICD-10-PCS; 2019-09-21)
PROC: 5A12012 Performance of Cardiac Output, Single, Manual (ICD-10-PCS; 2019-09-22)
DX: A41.89 Other specified sepsis (principal); U07.1 COVID-19; J12.89 Other viral pneumonia; J96.01 Acute respiratory failure with hypoxia; R65.21 Severe sepsis with septic shock; N17.0 Acute kidney failure with tubular necrosis; J96.02 Acute respiratory failure with hypercapnia; Z68.42 Body mass index [BMI] 45.0-49.9, adult; E87.0 Hyperosmolality and hypernatremia; J93.9 Pneumothorax, unspecified; N13.30 Unspecified hydronephrosis; E87.2 Acidosis; M62.82 Rhabdomyolysis; I10 Essential (primary) hypertension; E66.01 Morbid (severe) obesity due to excess calories; G47.33 Obstructive sleep apnea (adult) (pediatric); K21.9 Gastro-esophageal reflux disease without esophagitis; J98.2 Interstitial emphysema; E11.65 Type 2 diabetes mellitus with hyperglycemia; D69.6 Thrombocytopenia, unspecified; R00.0 Tachycardia, unspecified; R57.1 Hypovolemic shock; Z79.899 Other long term (current) drug therapy
CPT/HCPCS: 36415; 36430; 36569; 71045; 74018; 76700; 80048; 80053; 80076; 81003; 81015; 82150; 82550; 82553; 82728; 82805; 82947; 83036; 83605; 83690; 83735; 83880; 84100; 84145; 84484; 85014; 85018; 85025; 85379; 85610; 85730; 86140; 86850; 86900; 86901; 86927; 87040; 87070; 87077; 87086; 87088; 87186; 87205; 93005; 93970; 94002; 94640; 94660; 94760; 96365; 96366; 96367; 96372; 96375; 99285; J0171; J0330; J0360; J0456; J0692; J0696; J1100; J1160; J1170; J1450; J1650; J1815; J1940; J2185; J2248; J2250; J2370; J2405; J2704; J2920; J2930; J3010; J3370; J3411; J3480; J7030; J7040; J7050; J7060; P9016; P9047; U0002